=== PATIENT | male | born 1955 | race Caucasian/White ===

== ENCOUNTER 2017-01-20 07:54 | Day surgery (SDC) | payer OTHER ==
[~2017-01-20] VITALS: Ht 172.7 cm; Wt 75.0 kg
[~2017-01-20 07:54] MED LIST: ACYC200C PO; ALBU8.5H4 IH; AZU500 PO; BENEDRYL PO; CYCL10TA9 PO; FLUT16SP2 NS; IBUP800T28 PO; Lactated Ringer's 1,000 ML IV ONE; OMEP20TA86 PO; PRE20 PO; PROM12.510 PO; [UNRECOGNIZED DRUG - CODE] PO
[2017-01-20] MEDS ORDERED: fentaNYL-PF 50 mCg/mL 2 mL Inj ONE (07:55)
[2017-01-20] MEDS ORDERED: Propofol 10,000 mCg/mL 20 mL Inj ONE (07:55)
[2017-01-20 09:10] VITALS: BP 137/100; PULSE 83; RESP 16; O2SAT 95
--- NOTE | 2017-01-20 09:39 | PCM.HPANE ---
Patient Data Surgeon Admitting Provider: Attending Provider:Pancho Feliciano MD Primary Care Physician:Saul Baker MD Other Provider:[facility] Reason for Visit GERD Ht/WT & BMI Body Mass Index Allergies Coded Allergies: No Known Allergies (Verified Allergy, Unknown, 03/27/15) Past Anesthesia History Anesthesia History: Denies:: Abnormal Airway, Anesthesia Reactions, Difficult Intubation, Fam Anesthesia Reaction, Fam Malignant Hypertherm, Malignant Hyperthermia Diabetes History Hx Diabetes?: No MRSA MRSA: No Medications Reported Medications Cyclobenzaprine 10 Mg Bwbwbi79 Mg PO BID PRN Spasm Ref 0 01/19/17 Ibuprofen 800 Mg Biisyb928 Mg PO TID PRN For Pain Ref 0 03/27/15 Albuterol HFA 8.5 Gm Hfa.aer.ad1 Puff IH Q4 PRN For Shortness of Breath #1 INHALER Ref 0 03/27/15 Acyclovir 200 Mg Jgisgbf017 Mg PO BID 30 Days Ref 0 03/27/15 Discontinued Reported Medications Omeprazole 20 Mg Tablet.dr20 Mg PO DAILY 01/19/17 Promethazine 12.5 Mg Idtqxi24.5 Mg PO Q8H PRN PRN 03/27/15 Fluticasone Propionate (Flonase Nasal)16 Gm [place].susp2 Sprays NS DAILY #16 GM Ref 0 03/27/15 [Benedryl] No Conflict Check25 Mg PO HS PRN PRN 03/27/15 Cyclosporine 100 Mg Wwgujpa184 Mg PO BID 03/27/15 Sulfasalazine 500 Mg Tablet1,000 Mg PO BID 30 Days Ref 0 03/27/15 Prednisone (PredniSONE)20 Mg Btsuje56 Mg PO DAILY Ref 0 03/27/15 [Methadone] No Conflict Check Po Daily TAPERING SCRIPT GIVEN FOR 7 DAY DETOX FROM HEROIN 03/27/15 History HEENT History: Positive for:: Dysphagia Hearing Problem (DECREASE BOTH EARS) Denies:: Abnormal Airway Difficult Intubation Hx of Heart Problems?: No Cardiovascular History: Denies:: Hypertension Respiratory History: Positive for:: Asthma Denies:: Tuberculosis Neurological History: Denies:: CVA Hx Surgeries?: No Hx Diabetes: No Hx Alcohol Use: Yes (1/2 case / week) Stop/Bang Risk Assessment Category Category 1A: Patient has history of documented sleep apnea, and HAS NOT received any narcotic, sedative or anesthesia administration during this stay. Category 1B: Patient has history of documented sleep apnea, and HAS received any narcotic , sedative or anesthesia administration during this stay Category 2: Patient has SUSPECTED Obstructive Sleep Apnea, and HAS received any narcotic , sedative or anesthesia administration during this stay. Category 3: Patient has SUSPECTED Obstructive Sleep Apnea and HAS NOT received narcotic, sedative or anesthesia administration during this stay. Category 4: Outpatient in Procedural Areas with known sleep apnea or who screen positive for High Risk via the STOP/BANG questionnaire. Exam Exam General Appearance: Alert, Oriented X3, Cooperative, No Acute Distress HEENT/AIRWAY: MP 2 Lungs: Clear to Auscultation Heart: Exam Unremarkable Plan Impression Patient chart reviewed, patient interviewed and anesthestic plan with risks, benefits, and alternatives discussed, and informed consent obtained. ASA Physical Status: ASA3 Severe Disease (Hep B and C, substance abuse) Anesthetic Plan: MAC Bene/Risks/Altern/Consents: Yes HP Complete Prior to Induction: Yes Dung Pinto MD Jan 20, 2017 08:10
[2017-01-20 10:20] VITALS: BP 108/74; PULSE 99; RESP 16; O2SAT 94
--- NOTE | 2017-01-20 10:24 | PCM.ANEP2 ---
Post Anesthesia Evaluation ASA/CMS Post Anesthesia VS in Patient's Normal Range?: Yes Resp Stable; Airway Patent?: Yes CV Function & Hydration Stable: Yes Mental Status Recovered?: Yes Pain control Satisfactory?: Yes N/V Control Satisfactory?: Yes Dung Pinto MD Jan 20, 2017 10:24
[2017-01-20 10:29] VITALS: BP 121/82; PULSE 93; RESP 16; O2SAT 93
[2017-01-20 10:35] VITALS: BP 135/89; PULSE 94; RESP 16; O2SAT 95
--- NOTE | 2017-01-20 11:27 | ENDO ---
[address] [address] ENDOSCOPY PROCEDURE PATIENT: ARMANDO MALDONADO : 1955 MR#: [id number] ADMIT: 01/20/2017 JOB ID: [id number] PRIMARY PROVIDER: Saul Baker MD PROCEDURE: Esophagogastroduodenoscopy with biopsy. INDICATIONS: A 61-year-old male with symptoms of reflux and some intermittent dysphagia of uncertain etiology. EGD is thus pursued. EQUIPMENT: [id number]. SEDATION: Monitored anesthesia as provided by Dr. Feldman. COMPLICATIONS: None identified. PROCEDURE INFORMATION: After the risks and benefits were explained, written and verbal informed consent was obtained. The patient was brought into the endoscopy suite and placed in the left lateral decubitus position. Sedation was achieved as above. The scope introduced into the mouth through the bite block, and advanced to the duodenum. The scope was slowly withdrawn to carefully examine the mucosa for any defects or lesions. Retroflexed views were accomplished in the stomach. The stomach was decompressed, the scope removed from the patient who tolerated the procedure well. FINDINGS: 1. Duodenum: No pathology identified from the bulb through to the second portion. 2. Stomach: No ulcers, no mass lesions. No outlet obstruction. Retroflexed views of the LES were unremarkable. No varices. Diffuse gastropathy was seen throughout and a single biopsy was taken for exclusion of Helicobacter or any other underlying histopathology. 3. Esophagus: The squamocolumnar junction correlated with the top of the gastric folds. The GEJ was at 43 cm from the incisors. No acute erosive changes. No strictures. No mass lesions. No infectious pathology. The lower esophageal sphincter mechanism seemed to be rather tense. ENDOSCOPIC DIAGNOSES: 1. Subjectively tense LES. 2. Moderate diffuse gastropathy. RECOMMENDATIONS: 1. Await histopathology. 2. If Helicobacter is again found, repeat triple therapy will be pursued. 3. Visually, there were no findings to account for the patient's difficulty swallowing, manometry is therefore ordered, with office followup to review results.
--- NOTE | 2017-01-21 13:56 | PATH ---
SURGICAL PATHOLOGY Attending Physician:John Toro CASE STATUS: Signed Out PATIENT NAME: ARMANDO MALDONADO PID: [id number] : 1955 DATE COLLECTED:01/20/2017 16:15 SPECIMEN: Gastric, Biopsy CLINICAL HISTORY: 1).GASTRIC BIOPSY FINAL DIAGNOSIS: 1.GASTRIC BIOPSY: BODY-TYPE MUCOSA WITH NO DIAGNOSTIC ALTERATIONS. Negative for Helicobacter organisms. Negative for intestinal metaplasia. Negative for dysplasia and malignancy. ICD10 CODE R10.13 GROSS DESCRIPTION: The specimen is received in one formalin filled container labeled with the patient's name, sublabeled "gastric" and consists of a 0.3 x 0.3 x 0.2 CM portion of tissue which is entirely submitted in one cassette. 01/20/2017 DAC MICRO DESCRIPTION: See diagnosis. ICD-9 CODES: CPT CODES: 1: 03024 Electronically Signed Out Ekaterina Bower MD [facility] Pathology [facility] [address], [place] [address] Technical component performed at [facility], [address] [place] [address] Ave[address], [place], [address]
[2017-01-22] MEDS ORDERED: PRE10 PO (15:45)
[2017-01-22] MEDS ORDERED: OMEP20TA86 PO (15:45)
[2017-01-22] MEDS ORDERED: ALBU8.5H2 INHALATION (15:45)
[2017-01-22] MEDS ORDERED: AZU500 PO (15:45)
[2017-01-22] MEDS ORDERED: FLUT16SP NS (15:45)
[2017-01-22] MEDS ORDERED: CYCL100C23 PO (15:45)
== END 2017-01-20 23:59 | disposition home or self-care (01) ==
LOC: END 07:54
PROVIDERS: ATTEND Internal Medicine Gastroenterology
DX: K21.9 Gastro-esophageal reflux disease without esophagitis (principal); B18.2 Chronic viral hepatitis C; R13.10 Dysphagia, unspecified; F10.21 Alcohol dependence, in remission; Z87.898 Personal history of other specified conditions; G89.29 Other chronic pain; M47.9 Spondylosis, unspecified
CPT/HCPCS: 43239; 88305; J2250; J3010; J7120

== ENCOUNTER 2017-01-23 13:49 | Day surgery (SDC) | payer OTHER ==
[~2017-01-23] VITALS: Ht 172.7 cm; Wt 74.8 kg
[~2017-01-23 13:49] MED LIST changes: +ALBU8.5H2 INHALATION; -ALBU8.5H4 IH; -BENEDRYL PO; +CYCL100C23 PO; +FLUT16SP NS; -FLUT16SP2 NS; -Lactated Ringer's 1,000 ML IV ONE; +PRE10 PO; -PRE20 PO; -PROM12.510 PO; -[UNRECOGNIZED DRUG - CODE] PO
[2017-01-23] MEDS ORDERED: MethylprednisoLONE Depot 80 mg/mL Inj ONE (13:50)
[2017-01-23] MEDS ORDERED: Iohexol 240 mg/mL 10 mL Inj ONE (13:50)
[2017-01-23 14:06] VITALS: BP 150/105; PULSE 100; RESP 16; O2SAT 96
[2017-01-23 14:46] VITALS: BP 156/105; PULSE 68; RESP 16; O2SAT 96
--- NOTE | 2017-01-23 15:40 | PCM.PROC ---
Procedure Note Date of Service: Jan 23, 2017 Pre Procedure Diagnosis: PROCEDURE: Lumbar Interlaminar epidural steroid injection. L4-L5 ASA / ANTI-COAGULATION . No asa x 7 days. PRE-PROCEDURE DIAGNOSIS: Lumbar spinal stenosis POST-PROCEDURE DIAGNOSIS: same INDICATION: 61-year-old patient with low back and leg pain referred for L4-L5 interlaminar epidural steroid injection for lumbar spinal stenosis PERFORMED BY: Michael Webster MD DESCRIPTION OF PROCEDURE: Patient was met in the holding area. Consent was signed, site was confirmed and all questions were answered. Patient was taken to the procedure suite and placed prone on the procedure table. Area was prepped and draped in sterile fashion. Local anesthesia with 1% lidocaine was injected. An 18-gauge Touhy needle was advanced toward the interlaminar space using fluoroscopic guidance after optimizing the AP view. A loss of resistance syringe was attached as we approached the epidural space in the lateral view. After [id number] was obtained, radioopaque contrast was injected under live fluro which confirmed epidural placement without intravascular uptake. Then , 80 mg depomedrol was injected without difficulty. ANESTHESIA: Local. EBL: None. No Blood Products Used COMPLICATIONS: None SPECIMENS: None POST-PROCEDURE DISPOSITION: Patient was returned to the holding area in stable condition. They were discharged home when all discharge criteria were met. Evaluation/Physical Exam before discharge revealed: DISCHARGE MEDICATIONS: FOLLOW UP: Return to clinic in 4 weeks Michael Webster MD * Pain Management * Anesthesiology Michael Webster MD Jan 23, 2017 15:40
== END 2017-01-23 23:59 | disposition home or self-care (01) ==
LOC: END 13:49
PROVIDERS: ATTEND Anesthesiology Pain Medicine
DX: M48.06 Spinal stenosis, lumbar region (principal); M47.9 Spondylosis, unspecified; M54.9 Dorsalgia, unspecified; M25.551 Pain in right hip; G89.29 Other chronic pain
CPT/HCPCS: 62323; J1040

== ENCOUNTER 2017-02-17 10:06 | Day surgery (SDC) | payer OTHER ==
[~2017-02-17 10:06] MED LIST changes: -AZU500 PO; -CYCL100C23 PO; -FLUT16SP NS; -OMEP20TA86 PO; -PRE10 PO
[2017-02-17] MEDS ORDERED: Lidocaine Topical 2% 30 mL Jelly ONE (10:14)
== END 2017-02-17 23:59 | disposition home or self-care (01) ==
LOC: END 10:06
PROVIDERS: ATTEND Internal Medicine Gastroenterology
DX: R13.10 Dysphagia, unspecified (principal)

== ENCOUNTER 2017-03-19 08:27 | Observation (INO) | payer OTHER ==
[2017-03-19] VITALS (10 sets, daily range): BP systolic 121–157; BP diastolic 71–108; PULSE 74–98; RESP 16–31; O2SAT 94–98
[~2017-03-19] VITALS: Ht 172.7 cm; Wt 73.8 kg
[2017-03-19] MEDS ORDERED: Nitroglycerin 2% 1 Gm Ointment TOPICAL SCH (09:25)
--- NOTE | 2017-03-19 09:25 | ED.REPORT ---
HPI-Chest Pain 40 and Over Date of Service Mar 19, 2017 ED Provider: Zach Calderon MD Pt is a 61 year old male with a hx of HTN and IV drug use (clean x1 year) presenting to the ED via EMS complaining of 7/10 intermittent sharp left sided chest pain onset last night around 2230 lasting for about 5-10 minutes. He had another episode when he woke up at 0530 this morning lasting for about half an hour but symptoms resolved when he took his blood pressure medication. Associated symptoms include a cough for the last few days and dyspnea on exertion in the past few weeks. Denies SOB, diaphoresis, palpitations, nausea, vomiting or swelling. Exacerbated or relieved by nothing. Pt was seen at 4 days ago for high blood pressure. Nursing Notes Stated Complaint: CHEST PAIN Chief Complaint: Chest Pain Nursing Notes Reviewed: Yes (Zik[employer], transOMIC not reconciled) Allergies: Coded Allergies: No Known Allergies (Verified Allergy, Unknown, 03/27/15) Scheduled Aspirin (Aspirin) 81 Mg Tablet 81 MG PO DAILY Carvedilol (Carvedilol) 3.125 Mg Tablet 3.125 MG PO BID Scheduled PRN Albuterol HFA (Proair HFA) 8.5 Gm Hfa.aer.ad 2 PUFFS INHALATION Q4H PRN PRN For Shortness of Breath Cyclobenzaprine (Cyclobenzaprine) 10 Mg Tablet 10 MG PO BID PRN PRN Spasm Ibuprofen (Ibuprofen) 800 Mg Tablet 800 MG PO TID PRN PRN For Pain General Time Seen by MD: 08:40 Chief Complaint Chest pain Hx Obtained From: Patient, EMS Arrived By: Ambulance Sudden in Onset?: Yes Onset Occurred: Yesterday Symptom Duration: Intermittent Location: : Chest left Quality: Painful Severity: Current: Pain level 7 out of 10 Severity: Maximum: Severe Recent Healthcare: No recent hospitalization, Recent doctor visit Similar Sx Previous: No Past Medical History Past Medical History Notes: Multiple recent urgent care visits for high blood pressure, intermittent chest pain - patient has not yet undergone stress test as of 03/18/17 Past Medical History HTN, IV drug use (pateint reports clean x 1 year as of 03/18/2017) Hepatitis C Chronic back pain h/o dysphagia h/o asthma Past Surgical History Denies Family History Grandmother had heart problems in her 50s (Urgent care notes indicate a history of a sudden and a family member, patient did not mention to me) Smoking History Current Every Day Smoker Social History Alcohol Use: Denies alcohol use Drug Use: In recovery (history of IV drug use, reports sober 1 year) Ambulatory Status Independent Review of Systems Respiratory: Reports: Non-productive cough, Denies: Shortness of breath Cardiovascular: Reports: Chest pain, Dyspnea on exertion, Denies: Edema, Palpitations GI: Denies: Nausea, Vomiting Skin: Denies Diaphoresis Complete sys rev & neg: except as marked. Physical Exam Initial Vital Signs Vital Signs (First) Date Time Temp Pulse Resp B/P Pulse Ox O2 Delivery O2 Flow Rate FiO2 03/19/17 08:36 36.3 74 16 156/95 98 Room Air Initial VS: Reviewed, Vital signs normal Head / Eyes: Atraumatic, Normocephalic, PERRL ENT: Mucous membranes moist, Conjunctiva normal, No scleral icterus Neck: Supple, Non-tender, Full range of motion Extremities: Vascular intact, Neuro intact, No swelling, No tenderness Neurologic: Alert, Oriented, Nonfocal Psychiatric: Mood/affect normal, Behavior normal, Normal thought content General/Constitutional: Awake, Alert, No acute distress, Well appearing Respiratory / Chest: Breath sounds NL, Breath sounds = bilat, No respiratory distress, No rales, No rhonchi, No wheezing, No stridor, No chest tenderness Cardiovascular: Heart rate NL, Regular rhythm, Heart sounds NL, No murmurs, Peripheral circulation NL, Pulses = bilaterally, No gross BP differential Abdomen: Atraumatic, Soft, Non-tender Skin: Warm, Dry, Intact Pt has scars from prior IV drug use but has been clean for a year Interpretation & Diagnostics Lab Results Interpretation Result Diagram: 03/19/17 0940 03/19/17 0940 Test 03/19/17 09:40 White Blood Count 7.4th/mm3 (3.8-10.1) Red Blood Count 5.25mil/mm3 (4.40-5.80) Hemoglobin 16.7g/dL (13.8-17.2) Hematocrit 48.7% (41.0-50.0) Mean Corpuscular Volume 92.8fL (81-100) Mean Corpuscular Hemoglobin 31.8pg (27.0-35.0) Mean Corpuscular Hemoglobin Concent 34.3% (32.0-37.0) Red Cell Distribution Width 13.9% (12.3-15.4) Platelet Count 126bil/L (150-400) Neutrophils (%) (Auto) 55.1% (40-74) Lymphocytes (%) (Auto) 32.6% (14-46) Monocytes (%) (Auto) 8.8% (4-12) Eosinophils (%) (Auto) 2.3% (0-5) Basophils (%) (Auto) 0.8% (0-3) Sodium Level 138mEq/L (134-144) Potassium Level 4.8mEq/L (3.5-5.2) Chloride Level 101mEq/L (97-108) Carbon Dioxide Level 21mmol/L (18-29) Blood Urea Nitrogen 13mg/dL (8-27) Creatinine 0.73mg/dL (0.76-1.27) Estimat Glomerular Filtration Rate 116mL/min (>59) Glucose Level 94mg/dL (60-99) Calcium Level 9.6mg/dL (8.5-10.1) Magnesium Level 2.1mg/dL (1.6-2.6) Total Bilirubin 0.6mg/dL (0.0-1.2) Aspartate Amino Transf (AST/SGOT) 52U/L (0-50) Alanine Aminotransferase (ALT/SGPT) 45U/L (0-44) Alkaline Phosphatase 52U/L (25-160) Troponin T 0.010ug/L (0.0-0.011) Total Protein 8.3g/dL (6.4-8.4) Albumin 4.6g/dL (3.4-5.0) Lab Results Interpretation: CBC normal except for mild thrombocytopenia from chronic liver disease CMP mild LFT abnormalities from chronic hepatitis C Troponin #1 negative ECG Interpretation ECG Interpretation: RBBB. RBBB present and unchanged from march 2015. (Also unchanged compared with one obtained in urgent care earlier today) Time: 08:59 Interpreted by: ED physician Normal ECG Interpretation: Normal rate (77), Normal sinus rhythm X-Ray Chest Interpretation Chest Xray Interpretation: IMPRESSION: Stable chest. No acute cardiopulmonary process is evident. Dictated by: Jens Novoa M.D. on 03/19/2017 at 8:38 Interpretation / Wet Read by: Interpret - Radiologist Re-Eval/Medical Decision Med Decision/Clinical Course This is a 61-year-old male without prior known history of heart disease presents referred from urgent care for chest pain. It turns out the patient's had several recent visits including one on Thursday for chest pain and new hypertension, but thus far has not been able to be set up for an outpatient stress test. Urgent care off notes also decayed a family history concern, which the patient did not relay to me. The patient does report that he had an episode of chest discomfort last night she was going to bed resolve, but then was awoken with left-sided chest pain without radiation this morning about 5:30 AM. He thinks it second episode lasted 30-45 minutes, and but then resolved and is currently chest pain-free. He has not really noted any clear provocative features but has noted some shortness of breath with exertion of uncertain duration. He denies diaphoresis, radiation of the arms or legs, nausea or vomiting. History of IV drug use, but tells me that he has been sober and clean for 1 year. His never had previous stress testing. On exam he appears well in no distress. He does have stigmata of chronic IV drug use with multiple scars is a very difficult IV start. However his has no murmur, lungs are clear, and no current clinical findings of venous thromboembolism or congestive heart failure evident on physical exam. Patient takes low-dose aspirin 81 mg a day to the prescription history of TIA, and had this dose before coming in, received the balance of aspirin at urgent care. He is asymptomatic but mildly hypertensive and received topical nitrates here. Patient's calculated HEART score is 4, which merits admission given estimated MACE of 12-16%. His EKG demonstrates a chronic right bundle branch block, unchanged from one about a year ago. Initial blood work includes a normal troponin, as well as mild LFT abnormalities consistent with his chronic C. At this point with multiple provider presentations, presentation concerning for the possibility of acute coronary syndrome, the patient benefit from serial enzymes, and ultimately stress testing-this is not been able to be arranged in the outpatient environment, so the patient is being admitted. As discussed the hospitalist Source of Hx: Old records Time of Eval: 09:49 Patient Status: Condition improved Re-Evaluation/Progress Note: Discussed plan for admission and stress test. Consultation : Referral / Consult Name: Anthony Ocampo MD Consulted With: Hospitalist Call Returned at: 10:42 Charge Coordinator: Will see patient, Agrees with plan, Accepts admit Differential Diagnosis: Positive: Chest pain, acute, Negative: Cholecystitis, Cholelithiasis, Esophageal rupture, Gun shot wound chest, Meron-Moody syndrome, Musculoskeletal pain, Pneumomediastinum, Pneumonia, Pneumothorax, Pulmonary edema, Pulmonary embolism, Stab wound chest Counseled Regarding: Diagnosis, Lab results, Need for follow-up, When/why to return to ED Discharge & Departure Primary Impression: Chest pain Chest pain type: unspecified Qualified Code: R07.9 - Chest pain, unspecified Disposition: ADMITTED TO HOSPITAL Discharge Condition All VS Reviewed: Yes Condition: Improved Referrals: Bo Milner MD (PCP) Scribe Attestation Portions of this note were transcribed by Yaima Marie. I, Dr. Calderon personally performed the history, physical exam and medical decision-making; I reviewed and confirmed the accuracy of the information in the transcribed note. Signed by: Woody Wright, 03/19/2017 at 1041. copies to: Bo Milner MD, Matthew F MD Mar 19, 2017 09:25 YAIMA MARIE Mar 19, 2017 09:30
--- NOTE | 2017-03-19 09:40 | DRSVH ---
PROCEDURE: X-RAY CHEST ONE VIEW, PORTABLE ([id number]) INDICATIONS: CHEST PAIN TECHNIQUE: One view of the chest was acquired. COMPARISON: [facility], CR, XR CHEST 2VW, 01/28/2017, 12:44. FINDINGS: Surgical changes and devices: None. Lungs and pleura: No pleural effusions or pneumothorax. Lungs are clear. Mediastinum: Mediastinal contours appear normal. Heart size is normal. There is aortic atheroscler osis. Bones and chest wall: No suspicious bony lesions. Overlying soft tissues appear unremarkable. IMPRESSION: Stable chest. No acute cardiopulmonary process is evident. Dictated by: Jens Novoa M.D. on 03/19/2017 at 8:38 Approved by: Jens Novoa M.D. on 03/19/2017 at 8:39
[2017-03-19 09:54] LABS: BASOPHILS % (AUTO) 0.8 % (0-3); EOSINOPHILS % (AUTO) 2.3 % (0-5); MONOCYTES % (AUTO) 8.8 % (4-12); Mean Corpuscular Hemoglobin 31.8 pg (27.0-35.0); Mean Corpuscular Volume 92.8 fL (81-100); NEUTROPHILS % (AUTO) 55.1 % (40-74); Platelet Count 126 bil/L (150-400)
[2017-03-19] MEDS ORDERED: CARV3.122 PO (10:04)
[2017-03-19] MEDS ORDERED: ASPI-973 PO (10:04)
[2017-03-19 10:23] LABS: TROPONIN T 0.01 ug/L (0.0-0.011)
[2017-03-19 10:34] LABS: Magnesium 2.1 mg/dL (1.6-2.6)
[2017-03-19] MEDS ORDERED: Alum-Mag Hydrox-Simeth 30 mL Suspension PO PRN ×2 (10:50→11:10)
[2017-03-19] MEDS ORDERED: Ondansetron 2 mg/mL 2 mL Inj IVPUSH PRN ×2 (10:50→11:10)
--- NOTE | 2017-03-19 11:09 | NUR ---
Admission Pt admitted to [facility] to 3002. VSS, except for increased RR. NO complains of increased chest discomfrt/pressure. Oriented to , visiting hours, and call light. Able to transfer self from gurney to bed, steady gait.
[2017-03-19] MEDS ORDERED: Polyethylene Glycol (PEG) 17 Gm Powder PO PRN (11:10)
--- NOTE | 2017-03-19 14:15 | NUR ---
Off the unit Pt off of [facility] for completion of CT. No complains of increased pain or chest discomfrt noted. IV SL, RA. Pt transported via wheelchair. Will continue to monitor.
--- NOTE | 2017-03-19 15:08 | DRSVH ---
PROCEDURE: CT ANGIO CHEST PULMONARY EMBOLISM ([id number]) INDICATIONS: chest pain and elevated d-dimer TECHNIQUE: After the administration of intravenous contrast, 2 mm thick sections acquired from the pulmonary api erlinda to the posterior costophrenic angles. 3-dimensional maximum intensity projection (MIP) coronal a nd sagittal reformats were then acquired through the thorax. For radiation dose reduction, the follo wing was used: automated exposure control, adjustment of mA and/or kV according to patient size. COMPARISON: None. FINDINGS: Image quality: Diagnostic Pulmonary arteries: Pulmonary arteries are normal in size, and demonstrate no intraluminal filling d efects to suggest central pulmonary embolism. Lungs and pleura: Centrilobular emphysematous changes of the lungs are present, more prominent within the lung apices. There is mild basilar scarring/atelectasis present. No pleural effusion, overt he art failure, or pneumothorax is evident. No lung masses are seen. No definite pulmonary nodules are identified. Mediastinum: Heart size is normal, without pericardial effusion. No mediastinal or hilar adenopathy . Thoracic aorta is normal in caliber and enhancement. Esophagus is normal in caliber, without hiat al hernia. There is aortic atherosclerosis. Coronary artery atherosclerosis also is present. Bones and chest wall: No suspicious bony lesions. Ribs and thoracic spine appear intact throughout. Age-appropriate degenerative changes of the spine are present. Degenerative changes of the shoulde rs are present. Thyroid gland is not adequately evaluated. No axillary or supraclavicular adenopath y. Bilateral gynecomastia is noted. Abdomen: Included portions of the upper abdomen demonstrate moderate nodularity to the surface of the liver, suggesting hepatic cirrhosis. Otherwise, the included portions of the upper abdomen are unre markable. IMPRESSION: 1. No pulmonary emboli. 2. No acute cardiopulmonary process is evident. 3. Emphysematous changes of the lungs. 4. Surgically normal morphology. Dictated by: Jens Novoa M.D. on 03/19/2017 at 14:02 Approved by: Jens Novoa M.D. on 03/19/2017 at 14:06
--- NOTE | 2017-03-19 16:38 | DRSVH ---
[facility] [address] [place] [address] Echocardiogram Report Name: ARMANDO MALDONADO GStudy Date: 03/19/2017 Height: 68 in Hospital Exam Location: [facility] Weight: 174 lb Gender: Male BSA: 1.9 m2 : 1955 Age: 61 yrs BP: 150/108 mmHg Reason For Study: CHEST PAIN Ordering Physician: HOSPITALIST [facility] Performed By: Lukas Pierce Referring Physician: Dr. Bo Milner Interpretation Summary Left ventricular systolic function is mildly reduced with the ejection fraction estimated to be 45-50%. There is a significant dyssynchronous contraction pattern, consistent with a conduction abnormality but no obvious focal wall motion abnormalities. The E/A ratio is reversed, suggesting impaired early relaxation of the left ventricle or a reduced preload state. The right ventricle is normal size and right ventricular systolic function is mildly reduced. Pulmonary artery pressures cannot be estimated because of the lack of a measurable TR jet velocity but the IVC suggests a low right atrial pressure of 3 mm Hg. Both atria are normal in size. There is mild tricuspid regurgitation but no other significant valvular heart disease. The ascending aorta is mildly enlarged. Procedure: A two-dimensional transthoracic echocardiogram with color flow and Doppler was performed. The study quality was technically good. There is no prior echocardiogram noted for this patient. The patient was in normal sinus rhythm during the exam. Left Ventricle: The left ventricle is normal in size. There is normal left ventricular wall thickness. Left ventricular systolic function is mildly reduced. The ejection fraction is estimated to be 45-50%. There is a significant dyssynchronous contraction pattern, consistent with a conduction abnormality. There are no focal wall motion abnormalities. The E/A ratio is reversed, suggesting impaired early relaxation of the left ventricle or a reduced preload state. Right Ventricle: The right ventricle is normal size. Right ventricular systolic function is mildly reduced. Atria: Both atria are normal in size. The interatrial septum is intact with no evidence for an atrial septal defect. The thickening of interatrial septum suggests lipomatous hypertrophy. Mitral Valve: The mitral valve leaflets appear borderline thickened, but open well. There is trace mitral regurgitation. Aortic Valve: The aortic valve is trileaflet. The aortic valve opens well. No aortic regurgitation is present. Tricuspid Valve: The tricuspid valve is normal in structure and function. There is mild tricuspid regurgitation. Pulmonary artery pressures cannot be estimated because of the lack of a measurable TR jet velocity. Pulmonic Valve: The pulmonic valve is normal in structure and function. There is trace pulmonic regurgitation. There is no other significant valvular heart disease. Great Vessels: The aortic root is normal size. The ascending aorta is mildly enlarged. The pulmonary artery is normal size. The IVC is of normal diameter and collapses greater than 50% with a sniff. This suggests a low right atrial pressure of 3 mm Hg. Pericardium/ Pleura There is no pericardial effusion. There is no pleural effusion. MMode/2D Measurements & Calculations LVIDd: 5.1 cm LA dimension: 3.3 cm RA long axis: 3.9 cm Ao root diam LVIDs: 3.8 cm FS: 25.0 % LA A2 area: 18.8 cm RA area: 14.0 cm Aortic Jxn EPSS: 0.73 cm LA A4 area: 16.3 cm RA vol: 42.4 ml IVSd: 0.74 cm LA length (vol): 5.2 cm RA : 22.0 ml/m2 asc Aorta Diam LVPWd: 0.77 cmLA vol: 50.3 ml LA vol index: 26.1 ml/m IVC diam: 0.93 cm EDV(MOD-sp2) LV tello. diameter/BSA LV sys. diameter/BSA RVD1 (basal) (cm/m^2): 2.7 (cm/m^2): 2.0 : 3.6 cm ESV(MOD-sp2) EF(MOD-sp2) RVD2 (mid) : 3.2 cm Doppler Measurements & Calculations Ao V2 max MV E max mark MV E/A: 0.71 PA V2 max : 107.2 cm/sec : 37.0 cm/sec Med Peak E' Mark : 64.9 cm/sec Ao max PG MV A max mark PA mean PG : 4.6 mmHg : 52.3 cm/sec E/E' med: 9.4 Ao mean PG MV A dur: 0.11 sec PA Accel Time : 2.7 mmHg : 0.11 sec MV dec time Ao V2 mean PA V2 mean : 0.20 sec : 78.9 cm/sec : 50.3 cm/sec Ao V2 VTI: 16.0 cm PA pr(Accel) : 27.6 mmHg Reading Physician:04:37 PM
--- NOTE | 2017-03-19 17:17 | PCM.HPMED ---
Subjective Date of Service Mar 19, 2017 Primary Provider: Admitting Physician: Anthony Ocampo MD Primary Care Physician: Bo Milner MD Attending Physician: Anthony Ocampo MD Admit Status: From the Emergency Department, 23-Hour Observation Chief Complaint: Chest pain/one day History of Present Illness: 61-year-old gentleman recently diagnosed with hypertension, hep C infection, history of latent TB, history of IV drug abuse was sent from urgent care clinic due to chest pain of one day. Patient states he woke up at midnight with chest pain, left-sided, sharp, 8/10, which lasted for 15 minutes. No associated diaphoresis. He also had another episode early this morning which prompted visit to urgent care and was sent here from urgent care. He states he has been having similar but milder intermittent chest discomfort for the last 5-6 days . He was seen at the urgent care clinic on Thursday for these complaints and was diagnosed with hypertension and was started on aspirin and carvedilol. Denies syncope. Denies leg swelling. He has some dyspnea with chest pain. Denies any chest pain with exertion. Current smoker. ED course: BP 150/100, HR 92, RR 16. Exam unremarkable. Labs unremarkable except slightly elevated LFT. Troponin negative. EKG sinus rhythm at 77 with RBBB. D-dimer elevated at 1.36, CT negative for PEs, but shows emphysematous change. Admitted for chest pain workup Review of Systems: Comprehensive review of systems performed, and pertinent positives and negatives included in history of present illness Allergies Coded Allergies: No Known Allergies (Verified Allergy, Unknown, 03/27/15) Home Medications Aspirin (Aspirin) 81 Mg Tablet 81 MG PO DAILY Recently started Carvedilol (Carvedilol) 3.125 Mg Tablet 3.125 MG PO BID PMH hypertension, hep C infection, untreated history of latent TB, Reportedly untreated history of IV drug abuse, quit 1 year Current smoker Surgical History Endoscopy 01/20/17 for dysphagia. shows tense LES otherwise unremarkable Recent low back steroid injection Family History Maternal aunt had heart attack at 45 with triple bypass Mother at 56 due to Karen Gehrigs His father when patient was age 5 and he does not know much about him Social History Hx Alcohol Use: Yes (hx alcoholism, quit 04/2016) Hx Substance Use: Yes (HEROIN,AMPHETAMINES CLEAN SINCE April) Hx Tobacco Use: Yes (1 pack / day) Smoking Status: Current Every Day Smoker Exam Vital Signs Vital Sign - Last Date Time Temp Pulse Resp B/P Pulse Ox O2 Delivery O2 Flow Rate FiO2 03/19/17 16:03 36.6 95 20 133/86 94 Room Air Exam Gen. patient is lying comfortably in hospital bed HEENT: Head is normocephalic atraumatic, Pupils equal and reactive, extraocular movements intact, Lungs clear to auscultation bilaterally Heart regular rate and rhythm without murmurs gallops or rubs Abdomen soft nontender without hepatosplenomegaly Extremities pulses are present dorsalis pedis posterior tibialis and radial. tSkin is warm and dry there are no rashes, Psych alert and oriented to person place and time Neuro cranial nerves II through XII are grossly intact Lymph: There is no lymphadenopathy appreciated in the cervical supra infraclavicular regions : no goncalves Lab and Diagnostics Result Diagram: 03/19/17 0940 03/19/17 0940 X-Rays, CTs and MRIs PROCEDURE: CT ANGIO CHEST PULMONARY EMBOLISM ([id number]) INDICATIONS: chest pain and elevated d-dimer TECHNIQUE: After the administration of intravenous contrast, 2 mm thick sections acquired from the pulmonary apices to the posterior costophrenic angles. 3-dimensional maximum intensity projection (MIP) coronal and sagittal reformats were then acquired through the thorax. For radiation dose reduction, the following was used: automated exposure control, adjustment of mA and/or kV according to patient size. COMPARISON: None. FINDINGS: Image quality: Diagnostic Pulmonary arteries: Pulmonary arteries are normal in size, and demonstrate no intraluminal filling defects to suggest central pulmonary embolism. Lungs and pleura: Centrilobular emphysematous changes of the lungs are present, more prominent within the lung apices. There is mild basilar scarring/ atelectasis present. No pleural effusion, overt heart failure, or pneumothorax is evident. No lung masses are seen. No definite pulmonary nodules are identified. Mediastinum: Heart size is normal, without pericardial effusion. No mediastinal or hilar adenopathy. Thoracic aorta is normal in caliber and enhancement. Esophagus is normal in caliber, without hiatal hernia. There is aortic atherosclerosis. Coronary artery atherosclerosis also is present. Bones and chest wall: No suspicious bony lesions. Ribs and thoracic spine appear intact throughout. Age-appropriate degenerative changes of the spine are present. Degenerative changes of the shoulders are present. Thyroid gland is not adequately evaluated. No axillary or supraclavicular adenopathy. Bilateral gynecomastia is noted. Abdomen: Included portions of the upper abdomen demonstrate moderate nodularity to the surface of the liver, suggesting hepatic cirrhosis. Otherwise, the included portions of the upper abdomen are unremarkable. IMPRESSION: 1. No pulmonary emboli. 2. No acute cardiopulmonary process is evident. 3. Emphysematous changes of the lungs. 4. Surgically normal morphology. Dictated by: Jens Novoa M.D. on 03/19/2017 at 14:02 Cardiac Echo Impressions Left ventricular systolic function is mildly reduced with the ejection fraction estimated to be 45-50%. There is a significant dyssynchronous contraction pattern, consistent with a conduction abnormality but no obvious focal wall motion abnormalities. The E/A ratio is reversed, suggesting impaired early relaxation of the left ventricle or a reduced preload state. The right ventricle is normal size and right ventricular systolic function is mildly reduced. Pulmonary artery pressures cannot be estimated because of the lack of a measurable TR jet velocity but the IVC suggests a low right atrial pressure of 3 mm Hg. Both atria are normal in size. There is mild tricuspid regurgitation but no other significant valvular heart disease. The ascending aorta is mildly enlarged. Assessment & Plan 61-year-old gentleman recently diagnosed with hypertension, hep C infection, history of latent TB, history of IV drug abuse was sent from urgent care clinic due to chest pain of one day #Chest pain, acute - EKG RBBB unchanged from prior. Troponin negative - echo as above with mild systolic dysfunction -Stress test pending - will hold beta court for stress test -Pain resolved now -EKG, Nitroglycerin when necessary #History of asthma, suspected COPD -CTA consistent with emphysematous change -will need PFT outpatient #Hep C infection -Follow-up patient #Hypertension - start amlodipine 5 mg daily -Hold carvedilol for stress test #Elevated d-dimer -CT negative for PE #Current smoker -counseled on cessation - full code Observation status Possible discharge tomorrow after stress test Anthony Ocampo MD Mar 19, 2017 17:17
--- NOTE | 2017-03-19 17:59 | NUR ---
Pain Pt reports head and back pain 7/10 on pain scale. 975 mg of PO Tylenol given with no decrease. MD made aware, home Flexeril restarted. Call light within reach, will continue to monitor.
[2017-03-19 19:53] LABS: TROPONIN T < 0.010 ug/L (0.0-0.011)
[2017-03-19] MEDS ORDERED: Albuterol 2.5 mg/3 mL Inhalation Solution NEB PRN (20:00)
[2017-03-20 00:15] VITALS: BP 142/90; PULSE 90; RESP 18; O2SAT 97
[2017-03-20 03:41] VITALS: PULSE 96
[2017-03-20 05:32] VITALS: BP 136/86; PULSE 84; RESP 18; O2SAT 96
[2017-03-20 08:00] VITALS: PULSE 95
[2017-03-20 08:54] VITALS: BP 146/92; PULSE 92; RESP 20; O2SAT 95
--- NOTE | 2017-03-20 09:26 | NUR ---
Off floor Pt off floor at 0945 for MIBI. Addendum: 03/20/17 at 1236 by AMY PABLO RN pt back on floor at this time.
[2017-03-20 12:41] VITALS: BP 137/89; PULSE 98; RESP 20; O2SAT 97
--- NOTE | 2017-03-20 15:02 | DRSVH ---
PROCEDURE: 1 DAY PHARMACOLOGICAL STRESS TEST Rest and pharmacological stress myocardial perfusion SPECT with gated imaging and ejection fraction RADIOPHARMACEUTICAL: 9.1 mCi Tc-99m tetrafosmin IV at rest and 26.2 mCi Tc-99m tetrafosmin IV at peak effect of pharmacological stress. A [id number] was performed. INDICATIONS: chest pain. TECHNIQUE: Radiopharmaceutical was injected at peak stress test, and also at rest. SPECT images wer e obtained. SPECT myocardial perfusion images were displayed in short axis, horizontal long axis, an d vertical long axis views. Gated images were reviewed using [employer] software. COMPARISON: None. CARDIAC STRESS: A pharmacologic stress test was performed under the supervision of an attending staff, using an infus ion of the [employer]. Hemodynamic data: There is normal blood pressure and heart rate response to pharmacologic stress. Symptoms: The patient denied anginal chest pain. Aminophylline: None EKG: No diagnostic changes of ischemia; no ectopy. FINDINGS: Raw data: There is good myocardial uptake of radiotracer. No significant motion artifacts. Left ventricle function: Gated images demonstrate normal left ventricular wall thickening. No segme ntal wall motion abnormalities. Left ventricle resting end diastolic volume is 71 mL. Left ventric le stress ejection fraction is 60; normal range is above 45%. Myocardial perfusion: There is a inferior perfusion defect noted on both stress and rest supine imag es. However on prone stress imaging the perfusion defect results completely. IMPRESSION: This is a most likely normal myocardial perfusion study. Inferior perfusion defect is mos t consistent with diaphragmatic attenuation artifact. Clinical correlation is recommended. Ejection f raction is normal with normal LV wall motion. Findings are suggests no significant obstructive de leon ry artery disease. Pharmacological stress EKG is nondiagnostic. Dictated by: Dustin Sandoval Jr., M.D. on 03/20/2017 at 14:56 Approved by: Dustin Sandoval Jr., M.D. on 03/20/2017 at 15:00
--- NOTE | 2017-03-20 15:11 | PCM.DIMED ---
Discharge Instructions Date of Service Mar 20, 2017 Dates of Hospitalization Mar 19, 2017 at 10:34 Discharge Diagnosis Discharge Diagnosis #Chest pain, acute,ACS ruled out #History of asthma, suspected COPD #Hep C infection #Hypertension #Elevated d-dimer #Current smoker - Test Results stress test negative echo mild systolic dysfunction with EF 45-50% CT chest emphysematous lung Diet Low fat, Low Sodium, Heart Healthy Activity Limited until seen by PCP Call your provider Fever or Chills, Shortness of breath, Bleeding, Chest pain, Vomitting, Excessive diarrhea, Weakness (unilateral) Patient Instructions You were hospitalized to due to chest pain. Stress test, EKG and laboratory negative for heart attack. Echocardiogram shows mild heart dysfunction. CT of the chest reveals signs of COPD. chest pain may be due to undiagnosed COPD or acid reflux or hypertensive heart disease. Please continue carvedilol. I have started you on amlodipine for blood pressure control. Please follow-up with PCP and get pulmonary function test for proper diagnosis of COPD and prescriptions for appropriate medications. Please take every effort to quit smoking. Follow-up plan Please follow-up with PCP in 1 week. Follow-up Provider: Bo Milner MD Follow-up with PCP in: 1 week Anthony Ocampo MD Mar 20, 2017 15:11
[2017-03-20] MEDS ORDERED: OMEP20CA11 PO (15:20)
[2017-03-20] MEDS ORDERED: AMLO5TAB2 PO (15:20)
--- NOTE | 2017-03-20 15:21 | PCM.DC.MED ---
Discharge Summary Date of Service Mar 20, 2017 Dates of Hospitalization Date of Hospital Admission Mar 19, 2017 at 10:34 Date of Discharge: Mar 20, 2017 Providers: Admitting Physician: Anthony Long MD Primary Care Physician: Bo Milner MD Attending Physician: Anthony Long MD Diagnosis at Time of Discharge Diagnosis at Time of Discharge #Chest pain, acute,ACS ruled out #History of asthma, suspected COPD #Hep C infection #Hypertension #Elevated d-dimer #Current smoker - Procedures XRay, CTs & MRIs PROCEDURE: CT ANGIO CHEST PULMONARY EMBOLISM ([id number]) INDICATIONS: chest pain and elevated d-dimer TECHNIQUE: After the administration of intravenous contrast, 2 mm thick sections acquired from the pulmonary apices to the posterior costophrenic angles. 3-dimensional maximum intensity projection (MIP) coronal and sagittal reformats were then acquired through the thorax. For radiation dose reduction, the following was used: automated exposure control, adjustment of mA and/or kV according to patient size. COMPARISON: None. FINDINGS: Image quality: Diagnostic Pulmonary arteries: Pulmonary arteries are normal in size, and demonstrate no intraluminal filling defects to suggest central pulmonary embolism. Lungs and pleura: Centrilobular emphysematous changes of the lungs are present, more prominent within the lung apices. There is mild basilar scarring/ atelectasis present. No pleural effusion, overt heart failure, or pneumothorax is evident. No lung masses are seen. No definite pulmonary nodules are identified. Mediastinum: Heart size is normal, without pericardial effusion. No mediastinal or hilar adenopathy. Thoracic aorta is normal in caliber and enhancement. Esophagus is normal in caliber, without hiatal hernia. There is aortic atherosclerosis. Coronary artery atherosclerosis also is present. Bones and chest wall: No suspicious bony lesions. Ribs and thoracic spine appear intact throughout. Age-appropriate degenerative changes of the spine are present. Degenerative changes of the shoulders are present. Thyroid gland is not adequately evaluated. No axillary or supraclavicular adenopathy. Bilateral gynecomastia is noted. Abdomen: Included portions of the upper abdomen demonstrate moderate nodularity to the surface of the liver, suggesting hepatic cirrhosis. Otherwise, the included portions of the upper abdomen are unremarkable. IMPRESSION: 1. No pulmonary emboli. 2. No acute cardiopulmonary process is evident. 3. Emphysematous changes of the lungs. 4. Surgically normal morphology. Dictated by: Jens Novoa M.D. on 03/19/2017 at 14:02 Cardiac Echo Impression Left ventricular systolic function is mildly reduced with the ejection fraction estimated to be 45-50%. There is a significant dyssynchronous contraction pattern, consistent with a conduction abnormality but no obvious focal wall motion abnormalities. The E/A ratio is reversed, suggesting impaired early relaxation of the left ventricle or a reduced preload state. The right ventricle is normal size and right ventricular systolic function is mildly reduced. Pulmonary artery pressures cannot be estimated because of the lack of a measurable TR jet velocity but the IVC suggests a low right atrial pressure of 3 mm Hg. Both atria are normal in size. There is mild tricuspid regurgitation but no other significant valvular heart disease. The ascending aorta is mildly enlarged. Other Diagnostics PROCEDURE: 1 DAY PHARMACOLOGICAL STRESS TEST Rest and pharmacological stress myocardial perfusion SPECT with gated imaging and ejection fraction RADIOPHARMACEUTICAL: 9.1 mCi Tc-99m tetrafosmin IV at rest and 26.2 mCi Tc-99m tetrafosmin IV at peak effect of pharmacological stress. A [id number] was performed. INDICATIONS: chest pain. TECHNIQUE: Radiopharmaceutical was injected at peak stress test, and also at rest. SPECT images were obtained. SPECT myocardial perfusion images were displayed in short axis, horizontal long axis, and vertical long axis views. Gated images were reviewed using Circle[employer] software. COMPARISON: None. CARDIAC STRESS: A pharmacologic stress test was performed under the supervision of an attending staff, using an infusion of the Regadenoson. Hemodynamic data: There is normal blood pressure and heart rate response to pharmacologic stress. Symptoms: The patient denied anginal chest pain. Aminophylline: None EKG: No diagnostic changes of ischemia; no ectopy. FINDINGS: Raw data: There is good myocardial uptake of radiotracer. No significant motion artifacts. Left ventricle function: Gated images demonstrate normal left ventricular wall thickening. No segmental wall motion abnormalities. Left ventricle resting end diastolic volume is 71 mL. Left ventricle stress ejection fraction is 60; normal range is above 45%. Myocardial perfusion: There is a inferior perfusion defect noted on both stress and rest supine images. However on prone stress imaging the perfusion defect results completely. IMPRESSION: This is a most likely normal myocardial perfusion study. Inferior perfusion defect is most consistent with diaphragmatic attenuation artifact. Clinical correlation is recommended. Ejection fraction is normal with normal LV wall motion. Findings are suggests no significant obstructive coronary artery disease. Pharmacological stress EKG is nondiagnostic. Dictated by: Dustin Sandoval Jr., M.D. on 03/20/2017 at 14:56 Brief History 61-year-old gentleman recently diagnosed with hypertension, hep C infection, history of latent TB, history of IV drug abuse was sent from urgent care clinic due to chest pain of one day. Patient states he woke up at midnight with chest pain, left-sided, sharp, 8/10, which lasted for 15 minutes. No associated diaphoresis. He also had another episode early this morning which prompted visit to urgent care and was sent here from urgent care. He states he has been having similar but milder intermittent chest discomfort for the last 5-6 days . He was seen at the urgent care clinic on Thursday for these complaints and was diagnosed with hypertension and was started on aspirin and carvedilol. Denies syncope. Denies leg swelling. He has some dyspnea with chest pain. Denies any chest pain with exertion. Current smoker. ED course: BP 150/100, HR 92, RR 16. Exam unremarkable. Labs unremarkable except slightly elevated LFT. Troponin negative. EKG sinus rhythm at 77 with RBBB. D-dimer elevated at 1.36, CT negative for PEs, but shows emphysematous change. Admitted for chest pain workup Hospital Course 61-year-old gentleman recently diagnosed with hypertension, hep C infection, history of latent TB, history of IV drug abuse was sent from urgent care clinic due to chest pain of one day #Chest pain, acute,ACS ruled out - EKG RBBB unchanged from prior. Troponin negative 2 - echo as above with mild systolic dysfunction EF 45-50% -Stress test negative -Resume home carvedilol -Pain resolved now -Chest Pain is due to either hypertensive heart disease or undiagnosed COPD. Prescribed amlodipine for blood pressure control. Advised patient to take his blood pressure at home. Advised patient to get outpatient PFT and get appropriate prescriptions for COPD treatment based on PFT. Continue albuterol for now -Continue aspirin -GERD also possible ,Prescribed omeprazole for trial #History of asthma, suspected COPD -CTA consistent with emphysematous change -will need PFT outpatient and prescription of appropriate COPD medications. Continue albuterol when necessary now #Hep C infection -Advised to Follow-up outpatient #Hypertension - started amlodipine 5 mg daily -Resume carvedilol #Elevated d-dimer -CT negative for PE #Current smoker -counseled on cessation Exam Vital Signs (Last) Date Time Temp Pulse Resp B/P Pulse Ox O2 Delivery O2 Flow Rate FiO2 03/20/17 12:41 36.6 98 20 137/89 97 Room Air Exam Gen. patient is lying comfortably in hospital bed HEENT: Head is normocephalic atraumatic, Pupils equal and reactive, extraocular movements intact, Lungs clear to auscultation bilaterally Heart regular rate and rhythm without murmurs gallops or rubs Abdomen soft nontender without hepatosplenomegaly Extremities pulses are present dorsalis pedis posterior tibialis and radial. Skin is warm and dry there are no rashes, Psych alert and oriented to person place and time Neuro cranial nerves II through XII are grossly intact Lymph: There is no lymphadenopathy appreciated in the cervical supra infraclavicular regions : no goncalves Test 03/19/17 09:40 03/19/17 11:28 03/19/17 18:55 03/20/17 05:07 White Blood Count 7.4th/mm3 (3.8-10.1) Red Blood Count 5.25mil/mm3 (4.40-5.80) Hemoglobin 16.7g/dL (13.8-17.2) Hematocrit 48.7% (41.0-50.0) Mean Corpuscular Volume 92.8fL (81-100) Mean Corpuscular Hemoglobin 31.8pg (27.0-35.0) Mean Corpuscular Hemoglobin Concent 34.3% (32.0-37.0) Red Cell Distribution Width 13.9% (12.3-15.4) Platelet Count 126bil/L (150-400) Neutrophils (%) (Auto) 55.1% (40-74) Lymphocytes (%) (Auto) 32.6% (14-46) Monocytes (%) (Auto) 8.8% (4-12) Eosinophils (%) (Auto) 2.3% (0-5) Basophils (%) (Auto) 0.8% (0-3) Sodium Level 138mEq/L (134-144) Potassium Level 4.8mEq/L (3.5-5.2) Chloride Level 101mEq/L (97-108) Carbon Dioxide Level 21mmol/L (18-29) Blood Urea Nitrogen 13mg/dL (8-27) Creatinine 0.73mg/dL (0.76-1.27) Estimat Glomerular Filtration Rate 116mL/min (>59) Glucose Level 94mg/dL (60-99) Calcium Level 9.6mg/dL (8.5-10.1) Magnesium Level 2.1mg/dL (1.6-2.6) Total Bilirubin 0.6mg/dL (0.0-1.2) Aspartate Amino Transf (AST/SGOT) 52U/L (0-50) Alanine Aminotransferase (ALT/SGPT) 45U/L (0-44) Alkaline Phosphatase 52U/L (25-160) Total Protein 8.3g/dL (6.4-8.4) Albumin 4.6g/dL (3.4-5.0) D-Dimer 1.27mg/L FEU (<0.50) Troponin T < 0.010ug/L (0.0-0.011) Thyroid Stimulating Hormone (TSH) 1.040uIU/mL (0.450-4.500) Pro-B-Type Natriuretic Peptide 28.73pg/mL (0-210) Discharge Medications Discharge Medications Amlodipine (Amlodipine) 5 Mg Tablet 5 MG PO DAILY Prescribed by: ANTHONY LONG MD Aspirin (Aspirin) 81 Mg Tablet 81 MG PO DAILY (Reported) Carvedilol (Carvedilol) 3.125 Mg Tablet 3.125 MG PO BID (Reported) Omeprazole (Omeprazole) 20 Mg Capsule.dr 20 MG PO DAILY Prescribed by: ANTHONY LONG MD As needed Albuterol HFA (Proair HFA) 8.5 Gm Hfa.aer.ad 2 PUFFS INHALATION Q4H PRN PRN For Shortness of Breath (Reported) Cyclobenzaprine (Cyclobenzaprine) 10 Mg Tablet 10 MG PO BID PRN PRN Spasm ( Reported) Ibuprofen (Ibuprofen) 800 Mg Tablet 800 MG PO TID PRN PRN For Pain (Reported) Followup Plan Disposition: home Follow-up plan Please follow-up with PCP in 1 week. Discharge Diet: Low fat, Low Sodium, Heart Healthy Discharge Activity: Limited until seen by PCP Patient Instructions You were hospitalized to due to chest pain. Stress test, EKG and laboratory negative for heart attack. Echocardiogram shows mild heart dysfunction. CT of the chest reveals signs of COPD. chest pain may be due to undiagnosed COPD or acid reflux or hypertensive heart disease. Please continue carvedilol. I have started you on amlodipine for blood pressure control. Please follow-up with PCP and get pulmonary function test for proper diagnosis of COPD and prescriptions for appropriate medications. Please take every effort to quit smoking. Follow-up Provider: Bo Milner MD Follow-up with PCP in: 1 week copies to: Bo Milner MD, Melaku MD Mar 20, 2017 15:21
--- NOTE | 2017-03-20 15:40 | NUR ---
Discharge Pt discharge home via private vechicle with friends. Pt verbalized understanding of discharge and Rx instructions, personal belongings accounted for and left with pt. Pt opted to walk out on his own vs wheel chair.
== END 2017-03-20 16:18 | disposition home or self-care (01) ==
LOC: EDBD 08:27 → EDUNIT# 08:27 → SED 08:36 → MPC 10:34
PROVIDERS: ADMIT Internal Medicine; ATTEND Internal Medicine
DX: R07.9 Chest pain, unspecified (principal); I45.10 Unspecified right bundle-branch block; J45.909 Unspecified asthma, uncomplicated; B18.2 Chronic viral hepatitis C; I10 Essential (primary) hypertension; R79.89 Other specified abnormal findings of blood chemistry; F17.210 Nicotine dependence, cigarettes, uncomplicated; M54.5 Low back pain; F10.21 Alcohol dependence, in remission; Z79.82 Long term (current) use of aspirin; Z87.898 Personal history of other specified conditions; Z86.73 Personal history of transient ischemic attack (TIA), and cerebral infarction without residual deficits
CPT/HCPCS: 36415; 71010; 71275; 78452; 80053; 83735; 83880; 84443; 84484; 85025; 85378; 93005; 93017; 99285; A9502; C8929; G0378; J2785; Q9967

== ENCOUNTER 2017-07-07 13:34 | Emergency (ER) | payer OTHER ==
[~2017-07-07] VITALS: Ht 172.7 cm; Wt 77.3 kg
[~2017-07-07 13:34] MED LIST changes: -ACYC200C PO; +AMLO5TAB2 PO; +ASPI-973 PO; +CARV3.122 PO; +OMEP20CA11 PO
[2017-07-07 13:44] VITALS: BP 138/75; PULSE 107; RESP 18; O2SAT 94
--- NOTE | 2017-07-07 14:13 | ED.REPORT ---
HPI-Extremity Problem Lower Date of Service Jul 07, 2017 ED Provider: Joshua Carolina MD Pt is a 62 y/o male with a history of HTN, CAD, IVDA, and hepatitis C who presents to the ED complaining of bilateral lower leg edema onset yesterday. Additional symptoms include blisters on back and difficulty urinating. He denies chest pain, SOB, nausea, vomiting, fever, and abdominal pain. . Pt states he had lower back surgery at [facility] and stayed there for 4 days before he was discharged on 07/04/17. He denies having these symptoms previously. Nursing Notes Stated Complaint: LEG SWELLING Chief Complaint: General Complaint Nursing Notes Reviewed: Yes Allergies: Coded Allergies: No Known Allergies (Verified Allergy, Unknown, 03/27/15) Scheduled Amlodipine (Amlodipine) 5 Mg Tablet 5 MG PO DAILY Aspirin (Aspirin) 81 Mg Tablet 81 MG PO DAILY Carvedilol (Carvedilol) 3.125 Mg Tablet 3.125 MG PO BID Ferrous Sulfate (Ferrous Sulfate) 325 Mg Tablet 325 MG PO BID Omeprazole (Omeprazole) 20 Mg Capsule.dr 20 MG PO DAILY Scheduled PRN Albuterol HFA (Proair HFA) 8.5 Gm Hfa.aer.ad 2 PUFFS INHALATION Q4H PRN PRN For Shortness of Breath Cyclobenzaprine (Cyclobenzaprine) 10 Mg Tablet 10 MG PO BID PRN PRN Spasm Ibuprofen (Ibuprofen) 800 Mg Tablet 800 MG PO TID PRN PRN For Pain General Time Seen by MD: 14:11 Chief Complaint Other (bilateral leg swelling) Hx Obtained From: Patient, Spouse Arrived By: Walk-in Onset Occurred: Yesterday Quality: Painful Severity: Current: Moderate Severity: Maximum: Moderate Recent Healthcare: Recent hospitalization Similar Sx Previous: No Past Medical History Past Medical History Notes: Multiple recent urgent care visits for high blood pressure, intermittent chest pain - patient has not yet undergone stress test as of 03/18/17 Past Medical History HTN, IV drug use (pateint reports clean x 1 year as of 03/18/2017) Hepatitis C Chronic back pain h/o dysphagia h/o asthma Reports: COPD, Coronary artery disease Past Surgical History Back surgery at [facility] 07/04/17 Family History Grandmother had heart problems in her 50s (Urgent care notes indicate a history of a sudden and a family member, patient did not mention to me) Smoking History Current Every Day Smoker Social History Alcohol Use: Denies alcohol use Drug Use: In recovery Ambulatory Status Walker Review of Systems Blisters on back Constitutional: Denies: Fever Complete sys rev & neg: except as marked. Respiratory: Denies: Shortness of breath Cardiovascular: Denies: Chest pain GI: Denies: Abdominal pain, Nausea, Vomiting Male: Reports Urinary urgency, Reports Urination decreased Physical Exam Initial Vital Signs Vital Signs (First) Date Time Temp Pulse Resp B/P Pulse Ox O2 Delivery O2 Flow Rate FiO2 07/07/17 13:44 36.8 107 18 138/75 94 Room Air Initial VS: Reviewed Head / Eyes: Atraumatic, Normocephalic Neck: Supple, Full range of motion Skin: Warm, Dry, No cyanosis Neurologic: Alert, Oriented, Nonfocal Psychiatric: Mood/affect normal, Behavior normal, Normal thought content Lower Extremity / Pelvis / MS: Atraumatic, Full range of motion +1 bilateral lower leg edema Ankle / Foot: Atraumatic, Full range of motion General/Constitutional: Awake, Alert Respiratory / Chest: Atraumatic, Breath sounds NL, Breath sounds = bilat, No respiratory distress Cardiovascular: Heart rate NL, Regular rhythm, Heart sounds NL Back: Full range of motion Additional Notes: Midline incision on back, no edema or erythema, sutures in place Interpretation & Diagnostics US Venous Duplex: IMPRESSION: No sonographic evidence of deep venous thrombus bilaterally. Dictated by: Richard Bains M.D. on 07/07/2017 at 15:42 Approved by: Richard Bains M.D. on 07/07/2017 at 15:43 Lab Results Interpretation Result Diagram: 07/07/17 1513 07/07/17 1513 Test 07/07/17 15:13 07/07/17 16:03 White Blood Count 7.7th/mm3 (3.8-10.1) Red Blood Count 2.56mil/mm3 (4.40-5.80) Hemoglobin 8.3g/dL (13.8-17.2) Hematocrit 24.6% (41.0-50.0) Mean Corpuscular Volume 96.1fL (81-100) Mean Corpuscular Hemoglobin 32.4pg (27.0-35.0) Mean Corpuscular Hemoglobin Concent 33.7% (32.0-37.0) Red Cell Distribution Width 12.4% (12.3-15.4) Platelet Count 284bil/L (150-400) Neutrophils (%) (Auto) 72.3% (40-74) Lymphocytes (%) (Auto) 14.8% (14-46) Monocytes (%) (Auto) 11.0% (4-12) Eosinophils (%) (Auto) 1.7% (0-5) Basophils (%) (Auto) 0.1% (0-3) Sodium Level 133mEq/L (134-144) Potassium Level 3.4mEq/L (3.5-5.2) Chloride Level 95mEq/L (97-108) Carbon Dioxide Level 25mmol/L (18-29) Blood Urea Nitrogen 17mg/dL (8-27) Creatinine 0.61mg/dL (0.76-1.27) Estimat Glomerular Filtration Rate 142mL/min (>59) Glucose Level 106mg/dL (60-99) Calcium Level 8.3mg/dL (8.5-10.1) Magnesium Level 2.0mg/dL (1.6-2.6) Total Bilirubin 1.3mg/dL (0.0-1.2) Aspartate Amino Transf (AST/SGOT) 52U/L (0-50) Alanine Aminotransferase (ALT/SGPT) 31U/L (0-44) Alkaline Phosphatase 49U/L (25-160) Pro-B-Type Natriuretic Peptide 239.2pg/mL (0-210) Total Protein 7.0g/dL (6.4-8.4) Albumin 3.4g/dL (3.4-5.0) Hold Urine Received (Received) ECG Interpretation ECG Interpretation: Sinus rhythm, rate [address] changes Time: 14:28 Interpreted by: ED physician Re-Eval/Medical Decision Med Decision/Clinical Course 62-year-old male who is status post recent lumbar surgery at [facility] presenting with bilateral lower leg swelling. He is discharged several days ago. He has no chest pain or difficulty breathing. He has bilateral lower extremity swelling mild. There is no evidence of DVT on ultrasound. His labs are unremarkable. There is no injury acute kidney injury. BNP is unremarkable. Likely fluid retention status post recent surgery versus venous insufficiencies status post decreased ambulation. There is no emergent etiology. Follow-up with primary doctor. Return precautions given. Source of Hx: Old records Re-Evaluation/Progress : Time of Eval: 16:11 Re-Evaluation/Progress Note: Pt rechecked. Discussed ultrasound and lab results. Discussed plan for discharge. Patient understands and agrees with plan. F/U instructions and RTER warnings given. All questions addressed at this time. Counseled Regarding: Diagnosis, Lab results, Need for follow-up, When/why to return to ED Discharge & Departure Impression: Primary Impression: Leg swelling Additional Impression: Anemia Anemia type: unspecified type Qualified Code: D64.9 - Anemia, unspecified Disposition: Home Discharge Condition All VS Reviewed: Yes Condition: Stable Patient Instructions: Anemia (ED), Leg Edema (ED) Additional Instructions: Your labs and ultrasound were normal and reassuring. There was no evidence of a blood clot. Follow-up with your primary care doctor early next week about your anemia. Start taking an iron supplement twice a day. Please return to the emergency room if you develop any new or concerning symptoms including fever, chest pain, nausea, vomiting, shortness of breath, or increasing swelling in your leg. Referrals: Bo Milner MD (PCP) Scribe Attestation Portions of this note were transcribed by Yeimi Patel and Wendi Billingsley. I, Dr. Carolina, personally performed the history, physical exam and medical decision-making; I reviewed and confirmed the accuracy of the information in the transcribed note. copies to: Bo Milner MD, Ben M MD Jul 07, 2017 14:13 Yeimi Patel Jul 07, 2017 14:25 Shauna Billingsley Jul 07, 2017 15:11
[2017-07-07 15:16] LABS: BASOPHILS % (AUTO) 0.1 % (0-3); EOSINOPHILS % (AUTO) 1.7 % (0-5); Mean Corpuscular Hemoglobin 32.4 pg (27.0-35.0); Mean Corpuscular Volume 96.1 fL (81-100); NEUTROPHILS % (AUTO) 72.3 % (40-74); Platelet Count 284 bil/L (150-400)
[2017-07-07 15:38] VITALS: BP 131/70; PULSE 97; RESP 16; O2SAT 97
--- NOTE | 2017-07-07 15:44 | DRSVH ---
PROCEDURE: US VENOUS LEG DUPLEX BILATERAL INDICATIONS: r/o dvt TECHNIQUE: Real-time imaging, as well as color and pulse Doppler interrogation, were performed of the deep veins of both legs from the inguinal ligament to the popliteal fossa. COMPARISON: [facility] Ultrasound, US, US ABDOMEN, 12/26/2016, 8:15. FINDINGS: The deep veins are normally compressible, and free of intraluminal thrombus. Color and pu lse Doppler demonstrate normal phasic intravascular flow. IMPRESSION: No sonographic evidence of deep venous thrombus bilaterally. Dictated by: Richard Bains M.D. on 07/07/2017 at 15:42 Approved by: Richard Bains M.D. on 07/07/2017 at 15:43
[2017-07-07] MEDS ORDERED: FERR-83 PO (16:14)
[2017-07-07 16:46] VITALS: BP 133/54; PULSE 98; RESP 16; O2SAT 93
== END 2017-07-07 16:44 | disposition home or self-care (01) ==
LOC: SED 13:34
DX: R60.0 Localized edema (principal); D64.9 Anemia, unspecified; I10 Essential (primary) hypertension; J45.909 Unspecified asthma, uncomplicated; I25.10 Atherosclerotic heart disease of native coronary artery without angina pectoris; F17.200 Nicotine dependence, unspecified, uncomplicated; R39.15 Urgency of urination; F11.21 Opioid dependence, in remission; F15.21 Other stimulant dependence, in remission; Z86.19 Personal history of other infectious and parasitic diseases; Z86.11 Personal history of tuberculosis; Z98.890 Other specified postprocedural states; Z79.51 Long term (current) use of inhaled steroids

== ENCOUNTER 2017-07-24 12:50 | Inpatient (IN) | payer OTHER ==
[~2017-07-24] VITALS: Ht 172.7 cm; Wt 74.7 kg
[~2017-07-24 12:50] MED LIST changes: +FERR-83 PO
[2017-07-24 12:53] VITALS: BP 156/81; PULSE 110; RESP 18; O2SAT 97
--- NOTE | 2017-07-24 13:05 | ED.REPORT ---
HPI-General Illness Date of Service Jul 24, 2017 ED Provider: Delia Kelley MD Pt is a 62 y/o male with a history of hypertension, hepatitis B and C, and recent back surgery who presents to the ED c/o progressively worsening abscess to his left cheek onset 3 days ago. He was seen at yesterday and started antibiotics, but states pain and swelling have worsened. Pt does not believe that his abscess has drained. Additional symptoms include pus coming out of nose , chills, dysphagia, bilateral lower leg edema that is baseline, and SOB that is baseline. He denies fever, neck discomfort, neck stiffness, headache, diarrhea, abdominal pain, nausea, or vomiting. Nursing Notes Stated Complaint: SWOLLEN LEFT CHEEK Chief Complaint: Skin Rash/Abscess Nursing Notes Reviewed: Yes Allergies: Coded Allergies: No Known Allergies (Verified Allergy, Unknown, 03/27/15) Scheduled Acyclovir (Acyclovir) 200 Mg Capsule 200 MG PO BID Amlodipine (Amlodipine) 5 Mg Tablet 5 MG PO DAILY Aspirin (Aspirin) 81 Mg Tablet 81 MG PO DAILY Carvedilol (Carvedilol) 3.125 Mg Tablet 3.125 MG PO BID Clindamycin (Clindamycin) 150 Mg Capsule 450 MG PO TID Cyclobenzaprine (Cyclobenzaprine) 10 Mg Tablet 10 MG PO BID Tiotropium [place] (Spiriva) 18 Mcg Cap.w.dev 18 MCG IH DAILY Scheduled PRN Albuterol HFA (Proair HFA) 8.5 Gm Hfa.aer.ad 2 PUFFS INHALATION Q4H PRN PRN For Shortness of Breath Ibuprofen (Ibuprofen) 800 Mg Tablet 800 MG PO TID PRN PRN For Pain Oxycodone (Roxicodone) 5 Mg Tablet 10 MG PO 5XD PRN PRN For Pain General Time Seen by MD: 13:04 Chief Complaint Other (Abscess to L cheek) Hx Obtained From: Patient Arrived By: Walk-in Sudden in Onset?: No Onset Occurred: 3 days ago Context of Onset: Recent antibiotic use Quality: Painful Severity: Current: Moderate Severity: Maximum: Severe Recent Healthcare: Recent doctor visit, Recent hospitalization Similar Sx Previous: No Past Medical History Past Medical History Notes: Multiple recent urgent care visits for high blood pressure, intermittent chest pain - patient has not yet undergone stress test as of 03/18/17 Past Medical History HTN, IV drug use (pateint reports clean x 1 year as of 03/18/2017) Hepatitis C Chronic back pain h/o dysphagia h/o asthma Reports: COPD, Coronary artery disease Past Surgical History Back surgery at [facility] 07/04/17 Family History Grandmother had heart problems in her 50s (Urgent care notes indicate a history of a sudden and a family member, patient did not mention to me) Mother had ALS Father of alcohol abuse Smoking History Current Every Day Smoker Social History Alcohol Use: Denies alcohol use Drug Use: In recovery Other Social History: Local resident Ambulatory Status Walker Review of Systems Abscess to L cheek, swollen Pus coming out of nose Bilateral lower leg edema No neck discomfort No neck stiffness Full Review of Systems Constitutional: Reports: Chills, Denies: Fever Respiratory: Reports: Shortness of breath (baseline) GI: Reports: Dysphagia, Nausea, Denies: Abdominal pain, Diarrhea, Vomiting Neurologic: Denies: Headache Complete sys rev & neg: except as marked. Physical Exam Vital Signs Vital Signs Date Time Temp Pulse Resp B/P Pulse Ox O2 Delivery O2 Flow Rate FiO2 07/24/17 16:48 102 18 116/71 07/24/17 12:53 37.5 110 18 156/81 97 Room Air Initial VS: Reviewed Head / Eyes: Atraumatic, Normocephalic Neck: Supple, Full range of motion Neurologic: Alert, Oriented, Nonfocal Psychiatric: Mood/affect normal, Behavior normal, Normal thought content General/Constitutional: Awake, Alert Head / Eyes: Atraumatic, Normocephalic Slightly jaundiced sclera Swollen and fullness at L nasal ala Fullness at angle of mouth L side, 3x3 firm area, no fluctuance No fluctuance in upper lip Erythema extending from upper jaw to chest Neck: Supple, Full range of motion No cervical lymphadenopathy Respiratory / Chest: Atraumatic, No respiratory distress Mild diffuse expiratory wheezes bilaterally Decreased breath sounds Cardiovascular: Heart rate NL, Regular rhythm Lower Ext Edema: Positive: Bilateral 2+ Heart sounds distant Abdomen: Atraumatic, Soft Tenderness/Guarding/Rebound: Positive: Tender LLQ... (Mild), Tender RUQ... ( Mild) Back: Atraumatic, Inspection NL, Full range of motion Surgical incision clean and dry at base of sacrum to L4 Lower Extremity / Pelvis / MS: Neurologic intact, Vascular intact Pressure ulcers on feet Interpretation & Diagnostics Soft Tissue Neck CT: IMPRESSION: 1. Multiloculated abscess within the left buccal subcutaneous fat. Given the small size and multiloculated appearance of this abscess, this is likely not amenable to incision and drainage. 2. Bilateral acute maxillary sinusitis and probable underlying right chronic maxillary sinusitis. These findings were discussed with Dr. Kelley at 4:15 PM on 07/24/17. Dictated by: Renetta Maxwell M.D. on 07/24/2017 at 16:07 Approved by: Renetta Maxwell M.D. on 07/24/2017 at 16:23 Lab Results Interpretation Result Diagram: 07/24/17 1431 07/24/17 1431 Test 07/24/17 14:31 07/24/17 15:22 White Blood Count 14.0th/mm3 (3.8-10.1) Red Blood Count 3.25mil/mm3 (4.40-5.80) Hemoglobin 10.1g/dL (13.8-17.2) Hematocrit 32.0% (41.0-50.0) Mean Corpuscular Volume 98.5fL (81-100) Mean Corpuscular Hemoglobin 31.1pg (27.0-35.0) Mean Corpuscular Hemoglobin Concent 31.6% (32.0-37.0) Red Cell Distribution Width 14.0% (12.3-15.4) Platelet Count 359bil/L (150-400) Neutrophils (%) (Auto) 75.6% (40-74) Lymphocytes (%) (Auto) 14.7% (14-46) Monocytes (%) (Auto) 8.3% (4-12) Eosinophils (%) (Auto) 0.9% (0-5) Basophils (%) (Auto) 0.1% (0-3) Sodium Level 134mEq/L (134-144) Potassium Level 3.9mEq/L (3.5-5.2) Chloride Level 96mEq/L (97-108) Carbon Dioxide Level 22mmol/L (18-29) Blood Urea Nitrogen 8mg/dL (8-27) Creatinine 0.52mg/dL (0.76-1.27) Estimat Glomerular Filtration Rate 171mL/min (>59) Glucose Level 94mg/dL (60-99) Lactic Acid Level 1.1mmol/L (0.4-2.0) Calcium Level 8.7mg/dL (8.5-10.1) Total Bilirubin 0.5mg/dL (0.0-1.2) Aspartate Amino Transf (AST/SGOT) 31U/L (0-50) Alanine Aminotransferase (ALT/SGPT) 16U/L (0-44) Alkaline Phosphatase 126U/L (25-160) Troponin T < 0.010ug/L (0.0-0.011) Pro-B-Type Natriuretic Peptide 307.2pg/mL (0-210) Total Protein 7.5g/dL (6.4-8.4) Albumin 3.6g/dL (3.4-5.0) Urine Color Yellow (YELLOW) Urine Appearance Clear (CLEAR,HAZY) Urine pH 8.0 (5.0-8.0) Urine Specific [place] 1.015 (1.003-1.035) Urine Protein Negativemg/dL (NEG,TRACE) Urine Glucose (UA) Negativemg/dL (NEGATIVE) Urine Ketones Negativemg/dL (NEGATIVE) Urine Occult Blood Negative (NEGATIVE) Urine Nitrite Negative (NEGATIVE) Urine Bilirubin Negative (NEGATIVE) Urine Urobilinogen Normalmg/dL (NORMAL) Urine Leukocyte Esterase Negative (NEGATIVE) Urine RBC 0-2/hpf (0-2) Urine WBC 0-5/hpf (0-5) Urine Epithelial Cells Occasional/hpf (NONE-MOD) Urine Crystals None seen (NONE SEEN) Urine Bacteria None/hpf (NONE-FEW) Urine Hyaline Casts None/lpf (NONE) Urine Granular Casts None seen (NONE SEEN) Urine Waxy Casts None seen (NONE SEEN) Urine Red Blood Cell Casts None seen (NONE SEEN) Urine White Blood Cell Casts None seen (NONE SEEN) Urine Mucus None seen (None Seen) Urine Trichomonas None seen (NONE SEEN) Urine Yeast None (NONE SEEN) Urinalysis Comment None Urine Culture Reflexed Not indicated ECG Interpretation ECG Interpretation: Sinus tachycardia, rate 106 RBBB No ischemic changes Time: 13:58 Interpreted by: ED physician X-Ray Chest Interpretation Chest Xray Interpretation: IMPRESSION: Mild bibasilar atelectasis. No pneumonia or overt heart failure. Dictated by: Jens Novoa M.D. on 07/24/2017 at 12:54 Approved by: Jens Novoa M.D. on 07/24/2017 at 12:56 View: Portable, 1 view Interpretation / Wet Read by: Interpret - Radiologist Re-Eval/Medical Decision Med Decision/Clinical Course Facial cellulitis with developing abscess not yet ready or appropriate to drain. Possibly starting from the left maxillary sinusitis. Cellulitis is extending from the left upper lip all the way down over the angle of the jaw and the neck to just below the sternal notch. CT scan does not show any evidence of airway compromise or drainable abscess. Patient had been on by mouth antibiotics and has progressed since then. Will he be admitted for IV antibiotic administration Patient has a history of IV drug use and heroin addiction. Not off heroin about a year ago with a brief course of methadone. He had spine surgery about 3 weeks ago and is currently using 10 mg of oxycodone one and a half every 4-6 hours with usage increasing. He was supposed to follow up with orthopedics at [facility] today but has not been this emergency department. We did briefly discuss his narcotic use and how this quickly escalates. 3 weeks postop he should be decreasing his medication at this point. We negotiated a maximum dose of 10 mg 4 times a day with an understanding that he likely will not be sent home with any chronic pain management narcotic Source of Hx: Old records Time of Eval: 16:25 Re-Evaluation/Progress Note: Pt rechecked. Discussed plan for admission. Pt understands and agrees with plan. All question addressed. Consultation #1: Referral / Consult Name: Renetta Maxwell MD Call Returned at: 16:13 Note: Radiology called to discuss pt's soft tissue neck CT. Consultation #2: Referral / Consult Name: Gregorio Gonzalez MD Consulted With: Hospitalist Call Returned at: 16:36 Harvesting Contractor: Will see patient, Agrees with plan, Accepts admit Note: Discussed pt's case with hospitalist, Dr. Gonzalez. Counseled Regarding: Diagnosis, Lab results, Need for admission Discharge & Departure Primary Impression: Facial cellulitis Additional Impression: Left maxillary sinusitis Ruled Out: Sepsis, Abscess Disposition: ADMITTED TO HOSPITAL Discharge Condition All VS Reviewed: Yes Condition: Stable Referrals: Bo Milner MD (PCP) Scribe Attestation Portions of this note were transcribed by Yeimi Patel. I, Dr. Kelley, personally performed the history, physical exam and medical decision-making; I reviewed and confirmed the accuracy of the information in the transcribed note. Signed by: Woody Dexter, 07/24/17 copies to: Bo Milner MD, Shawna L MD Jul 24, 2017 13:05 Yeimi Patel Jul 24, 2017 13:09
[2017-07-24] MEDS ORDERED: cefTRIAXone Inj 2,000 MG in Dextrose 5% Minibag Plus 50 ML IV ONE (13:30)
[2017-07-24] MEDS ORDERED: Vancomycin Dose per Pharmacist XX ONE ×2 (13:30→16:40)
[2017-07-24] MEDS ORDERED: Vancomycin Inj 1,750 MG in 0.9% Sodium Chloride 500 ML IV ONE (13:45)
--- NOTE | 2017-07-24 13:58 | DRSVH ---
PROCEDURE: X-RAY CHEST ONE VIEW, PORTABLE ([id number]) INDICATIONS: cellulitis neck and upper chest TECHNIQUE: One view of the chest was acquired. COMPARISON: [facility], CR, XR CHEST 1VW (PORTABLE), 03/19/2017, 8:41. FINDINGS: Surgical changes and devices: None. Lungs and pleura: Mild linear areas of increased density are seen at the bilateral lung bases (left g reater than right), which are new since the previous exam. There is no lobar consolidation, large ef fusion, or pneumothorax. Mediastinum: Mediastinal contours appear normal. Heart size is normal. There is mild aortic athero sclerosis. Bones and chest wall: No suspicious bony lesions. Overlying soft tissues appear unremarkable. IMPRESSION: Mild bibasilar atelectasis. No pneumonia or overt heart failure. Dictated by: Jens Novoa M.D. on 07/24/2017 at 12:54 Approved by: Jens Novoa M.D. on 07/24/2017 at 12:56
[2017-07-24] MEDS ORDERED: ACYC200C PO (14:13)
[2017-07-24] MEDS ORDERED: CLIN-77 PO (14:13)
[2017-07-24] MEDS ORDERED: OXYC-474 PO (14:13)
[2017-07-24] MEDS ORDERED: TIOT18CA3 IH (14:13)
[2017-07-24 14:39] LABS: BASOPHILS % (AUTO) 0.1 % (0-3); EOSINOPHILS % (AUTO) 0.9 % (0-5); MONOCYTES % (AUTO) 8.3 % (4-12); Mean Corpuscular Hemoglobin 31.1 pg (27.0-35.0); Mean Corpuscular Volume 98.5 fL (81-100); NEUTROPHILS % (AUTO) 75.6 % (40-74); Platelet Count 359 bil/L (150-400)
[2017-07-24 15:25] LABS: TROPONIN T < 0.010 ug/L (0.0-0.011)
[2017-07-24 15:51] LABS: APPEARANCE,URINE CLEAR (CLEAR,HAZY); COLOR,URINE YELLOW (YELLOW); OCCULT BLOOD,URINE NEGATIVE (NEGATIVE); UROBILINOGEN,URINE NORMAL (NORMAL)
--- NOTE | 2017-07-24 16:24 | DRSVH ---
PROCEDURE: CT NECK SOFT TISSUES WITH CONTRAST ([id number]) INDICATIONS: cellulitis TECHNIQUE: After the administration of intravenous contrast, 3.0 mm axial sections acquired from the sella to th e aortic arch. Additional oblique axial 3.0 mm sections acquired through the pharynx. 3 mm thick co uriel reformats were generated. For radiation dose reduction, the following was used: automated exp osure control. COMPARISON: None. FINDINGS: Image quality: Excellent. Lymph nodes: No enlarged lymph nodes seen throughout the neck. Vessels: Visualized vasculature appears patent. Neck spaces: The oropharynx, nasopharynx, and pharynx demonstrate no mucosal lesions. The vocal cor ds, false vocal cords, pyriform sinuses, epiglottis, vallecula, and tongue base all appear normal. Glands: The parotid and submandibular glands appear normal. Thyroid gland is unremarkable. Miscellaneous: There is a loculated appearing low density fluid collection within the subcutaneous le ft buccal tissues. The largest portion of the fluid collection measures 0.7 x 1.7 x 1.5 cm. There is marked soft tissue swelling and fat stranding within the surrounding subcutaneous fat. Fat stranding extends below the mandible. No other discrete fluid collections. Visualized portions of the pulmonary apices are clear. There is moderate to severe centrilobular emph ysema at the apices bilaterally. Thyroid gland is unremarkable. Scattered atheromatous calcifications are present in the thoracic aortic arch. The bilateral carotid artery calcifications at the carotid bifurcations. Bones: No suspicious bony lesions. There is mucosal thickening in the bilateral maxillary sinuses an d fluid which has a frothy appearance. The mastoid air cells and ethmoid air cells are clear. Bony re modeling is present within the right maxillary sinus. IMPRESSION: 1. Multiloculated abscess within the left buccal subcutaneous fat. Given the small size and multilocu lated appearance of this abscess, this is likely not amenable to incision and drainage. 2. Bilateral acute maxillary sinusitis and probable underlying right chronic maxillary sinusitis. These findings were discussed with Dr. Kelley at 4:15 PM on 07/24/17. Dictated by: Renetta Maxwell M.D. on 07/24/2017 at 16:07 Approved by: Renetta Maxwell M.D. on 07/24/2017 at 16:23
[2017-07-24] MEDS ORDERED: 0.9% Sodium Chloride 1,000 ML IV SCH (16:36)
[2017-07-24] MEDS ORDERED: Alum-Mag Hydrox-Simeth 30 mL Suspension PO PRN (16:40)
[2017-07-24] MEDS ORDERED: Polyethylene Glycol (PEG) 17 Gm Powder PO PRN (16:40)
[2017-07-24] MEDS ORDERED: Ondansetron 2 mg/mL 2 mL Inj IVPUSH PRN (16:40)
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
[2017-07-24 16:48] VITALS: BP 116/71; PULSE 102; RESP 18
[2017-07-24 17:22] LABS: Magnesium 1.7 mg/dL (1.6-2.6); Phosphorus 2.6 mg/dL (2.5-4.9)
--- NOTE | 2017-07-24 17:23 | NUR ---
Arrival to Floor from ER Patient arrived to floor via stretcher from ER, but RN unable to meet patient at this time, charge nurse to see patient now and then this RN will assess when available.
[2017-07-24 17:29] VITALS: BP 153/81; PULSE 18; O2SAT 95
--- NOTE | 2017-07-24 17:29 | PCM.CONPHA ---
Subjective Requesting Provider: Blayne Pinto DO Reason for Pharmacy Consult: Vancomycin Dosing Assessment/Plan Assessment/Plan Vancomycin dosing for facial cellulitis with goal trough 10-15: Ht 68 In Wt=81K Serum Cr=0.52 (calculations done with both 0.6 and 0.8mg/dl) Creatinine clearance >100ml/min Lactic Acid=1.1 WBC=14 T-Max 37.5 Vancomycin 1.75 Grams IV load at 1600 in the ED. Subsequent doses will be 1.5 Grams IV q 12 hours with a trough at 0300 07/26/17 prior to the 4th total dose. The pharmacy will follow renal function and evaluate the trough for any necessary dosing adjustments. Francia Ballard [facility] Jul 24, 2017 17:29
[2017-07-24] MEDS: 0.9% Sodium Chloride 1,000 ML IV SCH (20:00)
[2017-07-24] MEDS: Acyclovir 200 mg Capsule PO SCH (20:01)
[2017-07-24 20:40] VITALS: BP 137/81; PULSE 103; O2SAT 95
[2017-07-25] MEDS: Sodium Chloride LOK Flush 10 mL Syringe IVFLUSH SCH ×3 (00:35→17:18)
[2017-07-25] MEDS: Heparin 5,000 Unit/mL Inj SUBQ SCH ×3 (00:36→17:19)
[2017-07-25 01:04] VITALS: BP 137/79; PULSE 93; O2SAT 95
[2017-07-25] MEDS: 0.9% Sodium Chloride 1,000 ML IV SCH ×2 (03:20→12:20)
[2017-07-25] MEDS: Vancomycin Inj 1,500 MG in 0.9% Sodium Chloride 500 ML IV SCH ×2 (04:40→17:18)
[2017-07-25 05:30] VITALS: BP 145/77; PULSE 104; O2SAT 94
[2017-07-25 06:25] LABS: BASOPHILS % (AUTO) 0.1 % (0-3); EOSINOPHILS % (AUTO) 1.1 % (0-5); MONOCYTES % (AUTO) 7.2 % (4-12); Mean Corpuscular Hemoglobin 31.1 pg (27.0-35.0); Mean Corpuscular Volume 96.9 fL (81-100); NEUTROPHILS % (AUTO) 70.7 % (40-74); Platelet Count 350 bil/L (150-400)
[2017-07-25] MEDS: Tiotropium 18mcg/Cap 5 Capsule Inhaler Kit INHALATION SCH (08:30)
[2017-07-25] MEDS: cefTRIAXone Inj 2,000 MG in Dextrose 5% Minibag Plus 50 ML IV SCH (09:15)
[2017-07-25] MEDS: Acyclovir 200 mg Capsule PO SCH ×2 (09:15→20:35)
[2017-07-25 09:39] VITALS: BP 148/75; PULSE 100; O2SAT 93
[2017-07-25 11:57] VITALS: BP 119/70; PULSE 94; O2SAT 94
--- NOTE | 2017-07-25 12:58 | PCM.PNMED ---
Subjective Date of Service Jul 25, 2017 Subjective Erythema shows some regression from marked area. Pt tolerated clear liquid diet , would like to advance. Exam Vital Signs Vital Sign - Last Date Time Temp Pulse Resp B/P Pulse Ox O2 Delivery O2 Flow Rate FiO2 07/25/17 11:57 36.8 94 119/70 94 Room Air 07/24/17 16:48 18 Intake and Output 07/24/17 07/24/17 07/25/17 Cumulative From/Thru 15:00 23:00 07:00 07/24/17 12:53 - 07/25/17 07:00 Output Total 400 ml 400 ml Balance -400 ml -400 ml Output Urine Total 400 ml 400 ml # Voids 1 1 Exam General: No acute distress, appropriately interactive HEENT: Normocephalic, atraumatic. PERRLA, Anicteric sclerae, moist conjunctivae. Significant left facial swelling with erythema from mid axillary to clavicular head, significant tenderness left upper lips, left upper lobe pus filled lesion without lysis. No lesion noted on the left buccal area noted. No extra ocular muscle weakness seen. Neck: No JVD, No bruits. No lymphadenopathy or thyromegaly. Cardiovascular: Regular rate and rhythm with no murmurs, rubs, or gallops appreciated Pulmonary: b/l air sound with no crackles, wheezes, or rhonchi. no use of accessory muscles. Abdomen: +Bowel sound, Soft, nontender, nondistended. Extremities: No clubbing or cyanosis, no lymphedema, mild nonpitting bilateral lower leg edema Skin: Normal temperature, turgor, and texture; 1 inch left anterior lower leg healing ulcer, no redness or tenderness noted Neurological: CN II-VII grossly intact, moving equally on all 4 extremities Psychiatric: Normal mood and affect. AOx3 IVs and Medications Medications Reviewed: Medications were reviewed in detail Lab and Diagnostics Result Diagram: 07/25/1755407/25/17 05 X-Rays, CTs and MRIs PROCEDURE: CT NECK SOFT TISSUES WITH CONTRAST INDICATIONS: cellulitis IMPRESSIONS 1. Multiloculated abscess within the left buccal subcutaneous fat. Given the small size and multiloculated appearance of this abscess, this is likely not amenable to incision and drainage. 2. Bilateral acute maxillary sinusitis and probable underlying right chronic maxillary sinusitis. These findings were discussed with Dr. Kelley at 4:15 PM on 07/24/17. Dictated by: Renetta Maxwell M.D. on 07/24/2017 at 16:07 Assessment & Plan Patient is a 62 year-old male with a medical history significant for hepatitis BC, hypertension, history of IVDA presented to the ED with left facial abscess , admitted for sepsis, left facial cellulitis. Sepsis due to L Faial cellulitis and abscess- poa, active. -met SIRS criteria, WBC- 14->14.7. HR 110, -lactic acid normal, hypertensive, no aggressive bolus IV fluids -NS 100cc/hr given, held. Left Facial cellulitis- poa, active. -CT-neck with multiloculated abscess with b/l maxillary sinuitis -Blood culture x3, CRP, MRSA screening ordered -Abx: ceftriaxone and vancomycin -Consult Infectious Disease Dr. King who will agrees to see him -Consider ENT should pt with difficulty swallowing -roxycodone prn for facial pain Venous stasis ulcer, - poa, active. -prominent left lower leg anterior ulcer, noninfectious on evaluation -wound care eval ordered Chronic Heart failure with reduced EF- chronic, stable. -EF 40-45% with evident of also impaired relaxation on echo 02/2017. negative stress testing 02/2017 -RBBB on EKG. no JVD. -telemetry monitoring COPD- - chronic, stable. -cont home Spiriva -duoneb prn Hypertension- - chronic, stable. -amlodipine started last mo, likely cause of b/l lower leg swelling -restart home dose of amlodipine and carvedilol Genital herpes- chronic, stable. -cannot appreciate any herpetic lesion around genital -cont acyclovir Untreated Hepatis B/C- chronic, active -has hx heroin use, stopped last year - HIV screening- pending CODE STATUS full code DVTs prophylaxis heparin subcutaneous Patient Status: Patient initially admitted under observation status, changed to inpatient on day of admit as expected length of stay greater than 2 midnights due to severity of presenting symptoms, risk of adverse event, and complexity of treatment plan. Pain Evaluation: Adequate Pain Control VTE Prophylaxis: Sub-Q Enoxaparin Resuscitation Status: CPR: Attempt Resuscitation Gregorio Gonzalez MD Jul 25, 2017 12:58
--- NOTE | 2017-07-25 15:15 | NUR ---
Social Work: Screening/Multidisciplinary Rounds D: EMR reviewed. Pt is a 62 y/o male admitted [place] - readmit score of 4 - for facial cellulitis, maxillary sinusitis per H&P. Pt's insurance is [employer]. PCP is Bo Milner MD. Pt's NOK is friend Charlee Gentile [phone]. Pt lives at home alone in [place]. SW screened pt's EMR - pt does not screen in for full assessment. Pt has a hx of IVDU/ETOH but has been sober since April 2016. Pt discussed in multidisciplinary rounds and is not medically stable for discharge at this time. SW discussed potential needs regarding hx of IVDU/ETOH - per MD, pt continues to have capacity for self-care and sobriety. Pt is on ABX and will continue for 2 more days pending cultures. Pt positive for Hep B/C. No anticipated discharge needs at this time, no MD orders received. SW will continue to follow for needs. A: Pt who is independent at baseline. P: SW will continue to follow for potential ABX needs. No anticipated discharge needs at this time, no MD orders received. SW will continue to follow for needs. RAHEEM Ramirez
--- NOTE | 2017-07-25 19:27 | NUR ---
Activity Pt in bed during shift, using urinal if needed. Left side of face still swollen and red, but within marked borders. IV antibiotics given during shift. Pt using pain medications Q6 for oral and chronic back pain. Previous surgical site inspected and old sutures found. Obtained verbal order from MD to remove. Passed along to night RN. Pt also requesting nicotine patch and orders received. Bed in low, call light in reach, care continues.
[2017-07-25 20:35] VITALS: BP 130/71; PULSE 104; O2SAT 92
[2017-07-26] MEDS: Sodium Chloride LOK Flush 10 mL Syringe IVFLUSH SCH ×3 (00:32→17:46)
[2017-07-26] MEDS: Heparin 5,000 Unit/mL Inj SUBQ SCH ×3 (00:33→17:46)
[2017-07-26] MEDS ORDERED: Vancomycin Serum Trough XX ONE (03:00)
--- NOTE | 2017-07-26 04:21 | NUR ---
Sutures Old sutures from lower back surgery removed per order, incision site is well approximated, no notable bleeding or drainage, no any s/s of infection at this time, pt. slept most of the night, no discomfort voiced at this time, call light in reach at all times, hourly checks, VSS, all needs attended.
[2017-07-26 04:29] VITALS: BP 137/80; PULSE 92; O2SAT 96
[2017-07-26] MEDS: Vancomycin Inj 1,500 MG in 0.9% Sodium Chloride 500 ML IV SCH (04:48)
[2017-07-26 07:54] LABS: BASOPHILS % (AUTO) 0.5 % (0-3); EOSINOPHILS % (AUTO) 2.9 % (0-5); MONOCYTES % (AUTO) 8.8 % (4-12); Mean Corpuscular Hemoglobin 31.2 pg (27.0-35.0); Mean Corpuscular Volume 94.6 fL (81-100); NEUTROPHILS % (AUTO) 65.9 % (40-74); Platelet Count 336 bil/L (150-400)
[2017-07-26] MEDS: Tiotropium 18mcg/Cap 5 Capsule Inhaler Kit INHALATION SCH (08:30)
[2017-07-26] MEDS: cefTRIAXone Inj 2,000 MG in Dextrose 5% Minibag Plus 50 ML IV SCH (09:23)
[2017-07-26] MEDS: Acyclovir 200 mg Capsule PO SCH ×2 (09:23→20:58)
[2017-07-26] MEDS ORDERED: Oritavancin Diphosphate 1,200 MG in Dextrose 5% 1,000 ML IV ONE (10:40)
[2017-07-26 12:42] VITALS: BP 114/67; PULSE 91; O2SAT 91
--- NOTE | 2017-07-26 13:47 | PCM.PNMED ---
Subjective Date of Service Jul 26, 2017 Subjective Pt reports improved pain/redness of left face. Still swollen and hurting to eat. Exam Vital Signs Vital Sign - Last Date Time Temp Pulse Resp B/P Pulse Ox O2 Delivery O2 Flow Rate FiO2 07/26/17 12:42 36.8 91 114/67 91 Room Air 07/24/17 16:48 18 Intake and Output 07/25/17 07/25/17 07/26/17 Cumulative From/Thru 15:00 23:00 07:00 07/24/17 12:53 - 07/26/17 05:56 Intake Total 1619 ml 846 ml 812 ml 3277 ml Output Total 900 ml 900 ml 950 ml 3150 ml Balance 719 ml -54 ml -138 ml 127 ml Intake Oral 1138 ml 400 ml 300 ml 1838 ml IV Total 481 ml 446 ml 512 ml 1439 ml Output Urine Total 900 ml 900 ml 950 ml 3150 ml # Voids 4 5 # Bowel Movements 0 0 0 0 Exam General: No acute distress, appropriately interactive HEENT: Normocephalic, atraumatic. PERRLA, Anicteric sclerae, moist conjunctivae. left facial swelling with erythema from mid axillary to clavicular head, significant tenderness left upper lips, left upper lobe pus filled lesion without lysis. Neck: No JVD, No bruits. No lymphadenopathy or thyromegaly. Cardiovascular: Regular rate and rhythm with no murmurs, rubs, or gallops appreciated Pulmonary: b/l air sound with no crackles, wheezes, or rhonchi. no use of accessory muscles. Abdomen: +Bowel sound, Soft, nontender, nondistended. Extremities: No clubbing or cyanosis, no lymphedema, mild nonpitting bilateral lower leg edema Skin: Normal temperature, turgor, and texture; 1 inch left anterior lower leg healing ulcer, no redness or tenderness noted Neurological: CN II-VII grossly intact, moving equally on all 4 extremities Psychiatric: Normal mood and affect. AOx3 IVs and Medications Medications Reviewed: Medications were reviewed in detail Lab and Diagnostics Result Diagram: 07/26/17 0740 07/26/17 0740 X-Rays, CTs and MRIs PROCEDURE: CT NECK SOFT TISSUES WITH CONTRAST INDICATIONS: cellulitis IMPRESSIONS 1. Multiloculated abscess within the left buccal subcutaneous fat. Given the small size and multiloculated appearance of this abscess, this is likely not amenable to incision and drainage. 2. Bilateral acute maxillary sinusitis and probable underlying right chronic maxillary sinusitis. These findings were discussed with Dr. Kelley at 4:15 PM on 07/24/17. Dictated by: Renetta Maxwell M.D. on 07/24/2017 at 16:07 Assessment & Plan Patient is a 62 year-old male with a medical history significant for hepatitis BC, hypertension, history of IVDA presented to the ED with left facial abscess , admitted for sepsis, left facial cellulitis. Sepsis due to L Faial cellulitis and abscess- poa, active. -met SIRS criteria, WBC- 14->14.7. HR 110, -lactic acid normal, hypertensive, no aggressive bolus IV fluids -CT-neck with multiloculated abscess with b/l maxillary sinuitis. -Blood culture x3, CRP, MRSA + Positive -Abx: ceftriaxone and vancomycin -Oxycodone prn for facial pain -Not amenable to I&D. -Consult Infectious Disease Dr. King, f/u recs. Venous stasis ulcer, - poa, active. -prominent left lower leg anterior ulcer, noninfectious on evaluation -wound care ordered. Chronic Heart failure with reduced EF- chronic, stable. -EF 40-45% with evident of also impaired relaxation on echo 02/2017. negative stress testing 02/2017 -RBBB on EKG. no JVD. COPD- - chronic, stable. -cont home Spiriva -duoneb prn Hypertension- - chronic, stable. -amlodipine started last mo, likely cause of b/l lower leg swelling -restart home dose of amlodipine and carvedilol Genital herpes- chronic, stable. -cannot appreciate any herpetic [id number] around genital -cont acyclovir Untreated Hepatis B/C- chronic, active -has hx heroin use, stopped last year - HIV screening- pending CODE STATUS full code DVTs prophylaxis heparin subcutaneous Patient Status: Patient initially admitted under observation status, changed to inpatient on day of admit as expected length of stay greater than 2 midnights due to severity of presenting symptoms, risk of adverse event, and complexity of treatment plan. Pain Evaluation: Adequate Pain Control VTE Prophylaxis: Sub-Q Enoxaparin Resuscitation Status: CPR: Attempt Resuscitation Gregorio Gonzalez MD Jul 26, 2017 13:47 Gregorio Gonzalez MD Jul 26, 2017 13:47
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
--- NOTE | 2017-07-26 17:44 | NUR ---
IV antibiotics Came into room and IV pump was off and cleared instead of infusing antibiotics. Was not turned off by RN or STRAIGHT RULING MACHINE OPERATOR. Pt had female visitor in room. IV line flushed and antibiotics started again.
[2017-07-26] MEDS: Mupirocin 2% 22 Gm Ointment NASAL SCH (20:59)
[2017-07-26 21:20] VITALS: BP 132/74; PULSE 90; O2SAT 93
[2017-07-27] MEDS: Heparin 5,000 Unit/mL Inj SUBQ SCH ×2 (00:04→08:32)
[2017-07-27] MEDS: Sodium Chloride LOK Flush 10 mL Syringe IVFLUSH SCH ×2 (00:05→08:32)
--- NOTE | 2017-07-27 03:36 | NUR ---
Pain/ Face Pt. reported back pain. Roxycodone PO given for back pain and effective. Pt's face is still red, but is decreasing, however bilateral cheeks still red. Will continue to monitor.
[2017-07-27 06:55] VITALS: BP 131/78; PULSE 81; O2SAT 93
[2017-07-27 07:00] LABS: BASOPHILS % (AUTO) 0.6 % (0-3); EOSINOPHILS % (AUTO) 4.4 % (0-5); MONOCYTES % (AUTO) 10.8 % (4-12); Mean Corpuscular Hemoglobin 31.1 pg (27.0-35.0); Mean Corpuscular Volume 95.4 fL (81-100); NEUTROPHILS % (AUTO) 54.3 % (40-74); Platelet Count 316 bil/L (150-400)
[2017-07-27] MEDS: cefTRIAXone Inj 2,000 MG in Dextrose 5% Minibag Plus 50 ML IV SCH (08:31)
[2017-07-27] MEDS: Acyclovir 200 mg Capsule PO SCH (08:32)
[2017-07-27] MEDS: Mupirocin 2% 22 Gm Ointment NASAL SCH (08:37)
[2017-07-27] MEDS: Tiotropium 18mcg/Cap 5 Capsule Inhaler Kit INHALATION SCH (08:38)
--- NOTE | 2017-07-27 10:36 | PCM.DC.MED ---
Discharge Summary Date of Service Jul 27, 2017 Dates of Hospitalization Date of Hospital Admission Jul 24, 2017 at 16:50 Date of Discharge: Jul 27, 2017 Providers: Admitting Physician: Nba Garza MD Primary Care Physician: Bo Milner MD Attending Physician: Nba Garza MD Diagnosis at Time of Discharge Diagnosis at Time of Discharge Sepsis due to L Faial cellulitis and abscess- poa, active. Untreated Hepatis B/C- chronic, active Venous stasis ulcer, - poa, active. Chronic Heart failure with reduced EF- chronic, stable. COPD- - chronic, stable. Hypertension- - chronic, stable. Genital herpes- chronic, stable. Consultations ID- Dr. King Procedures XRay, CTs & MRIs PROCEDURE: CT NECK SOFT TISSUES WITH CONTRAST INDICATIONS: cellulitis IMPRESSIONS 1. Multiloculated abscess within the left buccal subcutaneous fat. Given the small size and multiloculated appearance of this abscess, this is likely not amenable to incision and drainage. 2. Bilateral acute maxillary sinusitis and probable underlying right chronic maxillary sinusitis. These findings were discussed with Dr. Kelley at 4:15 PM on 07/24/17. Dictated by: Renetta Maxwell M.D. on 07/24/2017 at 16:07 Brief History Per hpi on 07/24/[address] Pinto Patient presents with medical history significant for IV drug use, hepatitis B, hepatitis C, and herpes simplex. Per patient, he states facial pain and swelling started about 4 days ago, exclusively tender, with associated mild fever and chills. Erythema has spread from his left upper lips to his maxillary and down his neck to clavicular heads. Patient has exquisite pain around the left maxillary 10/10, which prompted him to sought medical help. Patient state some difficulty with swallowing considering the pain, denies sore throat. Patient was at urgent care yesterday, and diagnosed with sinusitis and sent home with clindamycin. However due to increasing swelling, patient came into the ED for further evaluation. On review of systems, patient positive for bilateral temporal headaches started yesterday, mild. Otherwise patient denies any lightheadedness dizziness, vision problem, palpitation, chest pain, shortness of breath. Patient further denies any GI/ complaints. He does have lower leg edema, started last week. Patient states that he was started on amlodipine about 1 month ago. In the ED, patient was found tachycardic, with mild temperature 37.6, and white count of 14,000. Given facial swelling, CT neck soft tissue was ordered which showed multiple loculated abscess within the left apical subcutaneous fat none amenable to incision and drainage and acute maxillary sinusitis. Largest fluid collection measure 0.71.71.5 cm. Culture was drawn and patient started on ceftriaxone and clindamycin prior to admission to floor for left facial cellulitis. Hospital Course Patient is a 62 year-old male with a medical history significant for hepatitis BC, hypertension, history of IVDA presented to the ED with left facial abscess , admitted for sepsis, left facial cellulitis. Sepsis due to L Faial cellulitis and abscess- poa, active. -met SIRS criteria, WBC- 14->14.7. HR 110, -lactic acid normal, hypertensive, no aggressive bolus IV fluids -CT-neck with multiloculated abscess with b/l maxillary sinuitis. -Blood culture x3, CRP, MRSA + Positive -Abx: ceftriaxone and vancomycin -Oxycodone prn for facial pain -Not amenable to I&D. - Infectious Disease Dr. King- not a good candidate for home IV therapy, switched his vancomycin to a single dose of oritavancin. switched to oral Augmentin upon discharge. Untreated Hepatis B/C- chronic, active - Hep C Antibody >11. HCV qualitative pending. - Follow up with your primary doctor in 1 week to monitor for improvement of facial cellulitis. Will also need to follow to treat your Hepatitis C. Some labs are still pending which your doctor can request. Would recommend referral to Gastroenterology or [facility] Venous stasis ulcer, - poa, active. -prominent left lower leg anterior ulcer, noninfectious on evaluation Chronic Heart failure with reduced EF- chronic, stable. -EF 40-45% with evident of also impaired relaxation on echo 02/2017. negative stress testing 02/2017 -RBBB on EKG. no JVD. - no event on cardiac monitoring. COPD- - chronic, stable. -cont home Spiriva -duoneb given prn Hypertension- - chronic, stable. -amlodipine started last mo, likely cause of b/l lower leg swelling -restart home dose of amlodipine and carvedilol Genital herpes- chronic, stable. -cannot appreciate any herpetic [id number] around genital -cont acyclovir CODE STATUS full code DVTs prophylaxis heparin subcutaneous Dispo- discharge home on oral Antibiotics - Please take Antibiotics Augmentin twice daily for 10 days even if symptoms improve. - Follow up with your primary doctor in 1 week to monitor for improvement of facial cellulitis. Will also need to follow to treat your Hepatitis C. Some labs are still pending which your doctor can request. - Would recommend referral to Gastroenterology or [facility] Exam Vital Signs (Last) Date Time Temp Pulse Resp B/P Pulse Ox O2 Delivery O2 Flow Rate FiO2 07/27/17 06:55 36.8 81 131/78 93 Room Air 07/24/17 16:48 18 Test 07/24/17 14:31 07/24/17 15:22 07/25/17 05:55 07/26/17 03:10 Hemoglobin A1c 5.3% (4.8-5.6) Phosphorus Level 2.6mg/dL (2.5-4.9) Magnesium Level 1.7mg/dL (1.6-2.6) Troponin T < 0.010ug/L (0.0-0.011) C-Reactive Protein 5.3mg/dL (0.0-0.5) Pro-B-Type Natriuretic Peptide 307.2pg/mL (0-210) Procalcitonin 0.10ng/mL (0.00-0.08) Urine Color Yellow (YELLOW) Urine Appearance Clear (CLEAR,HAZY) Urine pH 8.0 (5.0-8.0) Urine Specific [place] 1.015 (1.003-1.035) Urine Protein Negativemg/dL (NEG,TRACE) Urine Glucose (UA) Negativemg/dL (NEGATIVE) Urine Ketones Negativemg/dL (NEGATIVE) Urine Occult Blood Negative (NEGATIVE) Urine Nitrite Negative (NEGATIVE) Urine Bilirubin Negative (NEGATIVE) Urine Urobilinogen Normalmg/dL (NORMAL) Urine Leukocyte Esterase Negative (NEGATIVE) Urine RBC 0-2/hpf (0-2) Urine WBC 0-5/hpf (0-5) Urine Epithelial Cells Occasional/hpf (NONE-MOD) Urine Crystals None seen (NONE SEEN) Urine Bacteria None/hpf (NONE-FEW) Urine Hyaline Casts None/lpf (NONE) Urine Granular Casts None seen (NONE SEEN) Urine Waxy Casts None seen (NONE SEEN) Urine Red Blood Cell Casts None seen (NONE SEEN) Urine White Blood Cell Casts None seen (NONE SEEN) Urine Mucus None seen (None Seen) Urine Trichomonas None seen (NONE SEEN) Urine Yeast None (NONE SEEN) Urinalysis Comment None Urine Culture Reflexed Not indicated Total Bilirubin 0.6mg/dL (0.0-1.2) Aspartate Amino Transf (AST/SGOT) 24U/L (0-50) Alanine Aminotransferase (ALT/SGPT) 13U/L (0-44) Alkaline Phosphatase 118U/L (25-160) Total Protein 7.1g/dL (6.4-8.4) Albumin 3.3g/dL (3.4-5.0) HIV (1&2) Ag and Ab, 4th Generation Non reactive (Non Reactive) Vancomycin Level Trough 13.3mcg/mL Test 07/26/17 15:47 07/27/17 06:50 Hepatitis B Surface Antigen Negative (Negative) Hepatitis C Antibody >11.0s/co ratio White Blood Count 6.4th/mm3 (3.8-10.1) Red Blood Count 3.66mil/mm3 (4.40-5.80) Hemoglobin 11.4g/dL (13.8-17.2) Hematocrit 34.9% (41.0-50.0) Mean Corpuscular Volume 95.4fL (81-100) Mean Corpuscular Hemoglobin 31.1pg (27.0-35.0) Mean Corpuscular Hemoglobin Concent 32.7% (32.0-37.0) Red Cell Distribution Width 13.3% (12.3-15.4) Platelet Count 316bil/L (150-400) Neutrophils (%) (Auto) 54.3% (40-74) Lymphocytes (%) (Auto) 29.7% (14-46) Monocytes (%) (Auto) 10.8% (4-12) Eosinophils (%) (Auto) 4.4% (0-5) Basophils (%) (Auto) 0.6% (0-3) Sodium Level 137mEq/L (134-144) Potassium Level 3.8mEq/L (3.5-5.2) Chloride Level 100mEq/L (97-108) Carbon Dioxide Level 21mmol/L (18-29) Blood Urea Nitrogen 7mg/dL (8-27) Creatinine 0.53mg/dL (0.76-1.27) Estimat Glomerular Filtration Rate 167mL/min (>59) Glucose Level 94mg/dL (60-99) Lactic Acid Level 0.8mmol/L (0.4-2.0) Calcium Level 8.1mg/dL (8.5-10.1) Total Creatine Kinase 22U/L (21-232) Discharge Medications Discharge Medications Acyclovir (Acyclovir) 200 Mg Capsule 200 MG PO BID (Reported) Amlodipine (Amlodipine) 5 Mg Tablet 5 MG PO DAILY Prescribed by: ANAMARIA LONG MD Amoxicillin/Clav K 875-125 mg (Augmentin 875-125 mg) 1 Each Tablet 1 TABLET PO BID Prescribed by: NBA GARZA MD Aspirin (Aspirin) 81 Mg Tablet 81 MG PO DAILY (Reported) Carvedilol (Carvedilol) 3.125 Mg Tablet 3.125 MG PO BID (Reported) Cyclobenzaprine (Cyclobenzaprine) 10 Mg Tablet 10 MG PO BID (Reported) Tiotropium [place] (Spiriva) 18 Mcg Cap.w.dev 18 MCG IH DAILY (Reported) As needed Albuterol HFA (Proair HFA) 8.5 Gm Hfa.aer.ad 2 PUFFS INHALATION Q4H PRN PRN For Shortness of Breath (Reported) Ibuprofen (Ibuprofen) 800 Mg Tablet 800 MG PO TID PRN PRN For Pain (Reported) oxyCODONE (oxyCODONE) 5 Mg Tablet 10 MG PO Q6H PRN PRN For Pain Prescribed by: NBA GARZA MD Additional med instructions - Please take Antibiotics Augmentin twice daily for 10 days even if symptoms improve. Followup Plan Disposition: discharge home on oral Antibiotics Follow-up plan - Follow up with your primary doctor in 1 week to monitor for improvement of facial cellulitis. Will also need to follow to treat your Hepatitis C. Some labs are still pending which your doctor can request. - Would recommend referral to Gastroenterology or [facility] Discharge Diet: No restrictions Discharge Activity: No restrictions Follow-up Provider: Bo Milner MD Follow-up with PCP in: 1 week Time spent Greater than 30 minutes was spent in preparation of discharge with greater than 50% of that time dedicated to patient counseling and coordination of care. Nba Garza MD Jul 27, 2017 10:36
[2017-07-27] MEDS ORDERED: OXYC5TAB72 PO (10:43)
[2017-07-27] MEDS ORDERED: AMOX-366 PO (10:44)
--- NOTE | 2017-07-27 10:48 | PCM.DIMED ---
Discharge Instructions Date of Service Jul 27, 2017 Dates of Hospitalization Jul 24, 2017 at 16:50 Discharge Diagnosis Discharge Diagnosis Sepsis due to L Faial cellulitis and abscess- poa, active. Untreated Hepatis B/C- chronic, active Venous stasis ulcer, - poa, active. Chronic Heart failure with reduced EF- chronic, stable. COPD- - chronic, stable. Hypertension- - chronic, stable. Genital herpes- chronic, stable. Medication Instructions Additional med instructions - Please take Antibiotics Augmentin twice daily for 10 days even if symptoms improve. Diet Discharge Diet: No restrictions Activity Discharge Activity: No restrictions Patient Instructions Follow-up plan - Follow up with your primary doctor in 1 week to monitor for improvement of facial cellulitis. Will also need to follow to treat your Hepatitis C. Some labs are still pending which your doctor can request. - Would recommend referral to Gastroenterology or [facility] Follow-up Provider: Bo Milner MD Follow-up with PCP in: 1 week Gregorio Gonzalez MD Jul 27, 2017 10:48
--- NOTE | 2017-07-27 11:41 | NUR ---
Discharge New orders for discharge. Reviewed discharge paper work, discharge continue home medications, 2 new prescriptions for amoxicillin and oxycodone, follow up appointment with PCP and referrals. patient will call and schedule appointment with his PCP as ordered. Pheripheral IV discontinued to left AC. Patient's valuable deposits has been double checked inbetween patient and nursing aid for accuracy. patient signs discharge paper work and left unit at [phone] with spouse by walk per preference. Alert and oriented. Denies any facial pain or discomfort prior to discharge.
== END 2017-07-27 11:46 | disposition home or self-care (01) | DRG 872 ==
LOC: SED 12:50 → OBSVTOIN 16:50 → OSC 16:50
PROVIDERS: ADMIT Internal Medicine; ATTEND Internal Medicine
DX: A41.9 Sepsis, unspecified organism (principal); I50.22 Chronic systolic (congestive) heart failure; L03.211 Cellulitis of face; L97.829 Non-pressure chronic ulcer of other part of left lower leg with unspecified severity; J44.9 Chronic obstructive pulmonary disease, unspecified; G89.29 Other chronic pain; I25.10 Atherosclerotic heart disease of native coronary artery without angina pectoris; J01.00 Acute maxillary sinusitis, unspecified; F17.210 Nicotine dependence, cigarettes, uncomplicated; B95.62 Methicillin resistant Staphylococcus aureus infection as the cause of diseases classified elsewhere; J45.909 Unspecified asthma, uncomplicated; A60.00 Herpesviral infection of urogenital system, unspecified; Z79.82 Long term (current) use of aspirin; Z79.51 Long term (current) use of inhaled steroids